=== PATIENT | female | born 1935 | race Caucasian/White ===

== ENCOUNTER 2018-07-14 11:49 | Outpatient (CLI) | payer MEDICARE, OTHER | END 2018-07-14 11:50 | disposition critical access hospital (66) | LOC: EMS 11:49 | PROVIDERS: ATTEND Surgery | DX: R73.09 Other abnormal glucose (principal) ==

== ENCOUNTER 2018-07-14 12:09 | Emergency (ER) | payer MEDICARE, OTHER ==
--- NOTE | 2018-07-14 13:10 | ED Physician Documentation ---
History of Present Illness - Stated complaint Stated Complaint: ELEVATED BLOOD SUGAR - Chief complaint Chief Complaint: Neuro - History obtained from History obtained from: Patient, Family, EMS - History of Present Illness Timing: Today (82-year-old woman who lives in a memory care facility who presents by ambulance for an episode of feeling poorly with clamminess earlier today. They checked her blood sugar and it was about 300 and she was referred here for further evaluation and treatment. Most of the history is from the daughter and son-in-law. She is been in this current memory care facility for about a year. She had a more recent diagnosis of diabetes and has been on glimepiride for less than a month. It does not look like she has an order for routine blood sugar checks. 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 : None HEENT: None Psych: Depression Musculoskeletal: None Derm: None - Present Medications Home Medications: Ambulatory Orders Medication Instructions Recorded Confirmed Blood-Glucose Meter [Glucometer] 1 each MC ONCE #1 each 07/14/18 Lancets/Blood Glucose Strips [Fora 1 each MC BID #120 combo..pkg 07/14/18 [id number] Strp-Lnct] metFORMIN [Glucophage] 500 mg PO BIDWM #60 tablet 07/14/18 - Allergies Allergies/Adverse Reactions: Allergies Allergy/AdvReac Type Severity Reaction Status Date / Time amitriptyline Allergy Unknown Verified 07/14/18 12:22 celecoxib [From Celebrex] Allergy Unknown Verified 07/14/18 12:22 ciprofloxacin [From Cipro] Allergy Unknown Verified 07/14/18 12:22 hydrocortisone Allergy Unknown Verified 07/14/18 12:22 [From Cortizone-10] metronidazole [From Flagyl] Allergy Unknown Verified 07/14/18 12:22 NSAIDS (Non-Steroidal Allergy Unknown Verified 07/14/18 12:22 Anti-Inflamma oxycodone Allergy Unknown Verified 07/14/18 12:22 Penicillins Allergy Unknown Verified 07/14/18 12:22 risedronate sodium Allergy Unknown Verified 07/14/18 12:22 Sulfa (Sulfonamide Allergy Unknown Verified 07/14/18 12:22 Antibiotics) Tetracyclines Allergy Unknown Verified 07/14/18 12:22 - Social History Does the pt smoke?: No Smoking Status: Never smoker Does the pt drink ETOH?: No Does the pt have substance abuse?: No - Immunizations Immunizations are current?: No - POLST Patient has POLST: No PD ED PE NORMAL - Vitals Vital signs reviewed: Yes - General General: Other (She is alert and oriented to person and place. She can test say that she is from [facility], but cannot verbalize which side of the state that is on. When I asked her where she lives she says "here and there." She is unable to verbalize the month, date or year.) - HEENT HEENT: PERRL, EOMI - Neck Neck: Supple, no meningeal sign, No bony TTP - Cardiac Cardiac: RRR, No murmur - Respiratory Respiratory: No respiratory distress, Clear bilaterally - Abdomen Abdomen: Soft, Non tender - Derm Derm: Normal color, Warm and dry - Extremities Extremities: No edema, No calf tenderness / cord - Neuro Neuro: intern brand 2-12 intact Eye Opening: Spontaneous Motor: Obeys Commands Verbal: Confused GCS Score: 14 - Psych Psych: Normal mood, Normal affect Results - Vitals Vitals: Vital Signs - 24 hr 07/14/18 07/14/18 12:16 13:58 Temperature 36.8 C 36.4 C L Heart Rate 65 77 Respiratory 18 24 Rate Blood Pressure 118/72 106/69 O2 Saturation 93 95 Oxygen O2 Source Room air - Labs Labs: Laboratory Tests 07/14/18 07/14/18 07/14/18 12:15 13:01 13:01 WBC 9.6 RBC 4.40 Hgb 13.3 Hct 40.7 MCV 92.4 MCH 30.3 MCHC 32.8 RDW 16.7 H Plt Count 148 MPV 10.0 Neut # (Auto) 7.1 H Lymph # (Auto) 1.9 [place] # (Auto) 0.5 Eos # (Auto) 0.0 Baso # (Auto) 0.1 Absolute Nucleated RBC 0.01 Nucleated RBC % 0.1 VBG pH 7.427 H VBG pCO2 34.1 L VBG pO2 27.1 VBG HCO3 22.0 L VBG Total CO2 23.0 L VBG O2 Saturation 51.1 L VBG Base Excess -1.7 Sodium Potassium Chloride Carbon Dioxide Anion Gap BUN Creatinine Estimated GFR (MDRD) Glucose POC Whole Bld Glucose 260 H Calcium Total Bilirubin AST ALT Alkaline Phosphatase Total Protein Albumin Globulin Albumin/Globulin Ratio Lipase Urine Color Urine Clarity Urine pH Ur Specific [place] Urine Protein Urine Glucose (UA) Urine Ketones Urine Occult Blood Urine Nitrite Urine Bilirubin Urine Urobilinogen Ur Leukocyte Esterase Urine RBC Urine WBC Ur Squamous Epith Cells Urine Bacteria Urine Casts Urine Mucus Ur Microscopic Review Urine Culture Comments Serum Ketones 07/14/18 07/14/18 13:20 13:45 WBC RBC Hgb Hct MCV MCH MCHC RDW Plt Count MPV Neut # (Auto) Lymph # (Auto) [place] # (Auto) Eos # (Auto) Baso # (Auto) Absolute Nucleated RBC Nucleated RBC % VBG pH VBG pCO2 VBG pO2 VBG HCO3 VBG Total CO2 VBG O2 Saturation VBG Base Excess Sodium 136 Potassium 3.7 Chloride 99 L Carbon Dioxide 20 L Anion Gap 17.0 H BUN 27 H Creatinine 1.5 H Estimated GFR (MDRD) 33 L Glucose 221 H POC Whole Bld Glucose Calcium 9.6 Total Bilirubin 0.7 AST 29 ALT 19 Alkaline Phosphatase 64 Total Protein 7.1 Albumin 3.7 Globulin 3.4 Albumin/Globulin Ratio 1.1 Lipase 34 Urine Color YELLOW Urine Clarity CLEAR Urine pH 5.5 Ur Specific [place] >=1.030 H Urine Protein 30 H Urine Glucose (UA) NEGATIVE Urine Ketones TRACE Urine Occult Blood NEGATIVE Urine Nitrite NEGATIVE Urine Bilirubin NEGATIVE Urine Urobilinogen 0.2 (NORMAL) Ur Leukocyte Esterase NEGATIVE Urine RBC None Seen Urine WBC 0-3 Ur Squamous Epith Cells RARE Squamous Urine Bacteria Rare Urine Casts 0-2 Hyaline Casts Urine Mucus Few Strands Ur Microscopic Review INDICATED Urine Culture Comments NOT INDICATED Serum Ketones NEGATIVE PD MEDICAL DECISION MAKING - ED course ED course: 82-year-old woman who presents after weak and dizzy episode which is now resolved. Work-up is negative except for modest hypoglycemia and prerenal azotemia which is treated with IV fluids. Departure - Departure Disposition: 01 Home, Self Care Clinical Impression: Dizziness, Weakness, Hyperglycemia Condition: Good Record reviewed to determine appropriate education?: Yes Instructions: ED Near Syncope Unkn Prescriptions: Blood-Glucose Meter [Glucometer] 1 each ONCE #1 each Lancets/Blood Glucose Strips [Fora [id number] [facility]-Lnct] 1 each MC BID #120 combo..pkg metFORMIN [Glucophage] 500 mg PO BIDWM #60 tablet Comments: As discussed I think the weak and dizzy episode earlier in the day was from dehydration for which she received IV fluids. Although her blood sugar was high I do not think this was causative but merits further treatment and followup. I am adding metformin to her diabetic regimen, 500 mg twice a day. She should have her blood sugar checked twice a day and recorded. Report to her PCP in 1 week with the blood sugar values for further evaluation and management.
[2018-07-14 13:29] LABS: BILIRUBIN,URINE NEGATIVE (NEGATIVE); GLUCOSE, URINE (UA) NEGATIVE (NEGATIVE); KETONES,URINE (UA) TRACE mg/dL (NEGATIVE); LEUKOCYTE ESTERASE, URINE NEGATIVE (NEGATIVE); NITRITE,URINE NEGATIVE (NEGATIVE); OCCULT BLOOD,URINE NEGATIVE (NEGATIVE); PH,URINE 5.5 PH (5.0-7.5); PROTEIN,URINE 30 mg/dL (NEGATIVE); UROBILINOGEN,URINE 0.2 (NORMAL) E.U./dL (NORMAL)
[2018-07-14 13:32] LABS: CLARITY,URINE CLEAR (CLEAR)
[2018-07-14 13:34] LABS: VBG BASE EXCESS -1.7 mmol/L (-2 - +2); VBG PCO2 34.1 mmHg (41-51); VBG PH 7.427 (7.31-7.41); VBG PO2 27.1 mmHg (25-47)
[2018-07-14 13:35] LABS: BASOPHILS # (AUTO) 0.1 10^3/uL (0.0-0.1); BASOPHILS % (AUTO) 0.6 %; EOSINOPHILS % (AUTO) 0.1 %; HGB - HEMOGLOBIN 13.3 g/dL (12.0-16.0); LYMPHOCYTES # (AUTO) 1.9 10^3/uL (1.5-3.5); LYMPHOCYTES % (AUTO) 20.1 %; MEAN CORPUSCULAR HEMOGLOBIN 30.3 pg (27.0-31.0); MEAN CORPUSCULAR HGB CONC 32.8 g/dL (32.0-36.0); MEAN CORPUSCULAR VOLUME 92.4 fL (81.0-99.0); MONOCYTES # (AUTO) 0.5 10^3/uL (0.0-1.0); MONOCYTES % (AUTO) 5.4 %; NEUTROPHILS # (AUTO) 7.1 10^3/uL (1.5-6.6); NEUTROPHILS % (AUTO) 73.8 %; PLT - PLATELET COUNT 148 10^3/uL (130-450); RED CELL DISTRIBUTION WIDTH 16.7 % (12.0-15.0); WHITE BLOOD COUNT 9.6 x10^3/uL (4.8-10.8)
[2018-07-14 13:40] LABS: BACTERIA,URINE Rare /HPF (None Seen); CASTS, URINE 0-2 Hyaline Casts /LPF; MUCUS,URINE Few Strands; RBC,URINE None Seen /HPF (0-5); SQUAMOUS EPITHELIAL CELL,UR RARE Squamous (<= Few)
[2018-07-14 13:59] LABS: KETONES, SERUM (ACETEST) NEGATIVE (NEGATIVE)
[2018-07-14 14:07] LABS: ALBUMIN 3.7 g/dL (3.2-5.5); ALBUMIN/GLOBULIN RATIO 1.1 (1.0-2.2); ALKALINE PHOSPHATASE 64 IU/L (42-121); ALT ALANINE AMINOTRANSFERASE 19 IU/L (10-60); AST ASPARTATE AMINOTRANSFERASE 29 IU/L (10-42); BILIRUBIN,TOTAL 0.7 mg/dL (0.2-1.0); BUN - BLOOD UREA NITROGEN 27 mg/dL (6-20); CALCIUM 9.6 mg/dL (8.5-10.3); CARBON DIOXIDE - CO2 20 mmol/L (21-32); CHLORIDE 99 mmol/L (101-111); CREATININE 1.5 mg/dL (0.4-1.0); GFR - MDRD 33 (>89); GLUCOSE 221 mg/dL (70-100); LIPASE 34 U/L (22-51); SODIUM 136 mmol/L (135-145); TOTAL PROTEIN 7.1 g/dL (6.7-8.2)
[2018-07-14] MEDS ORDERED: SODIUM CHLORIDE 0.9% 1,000 ML IV ONE (14:10)
[2018-07-14 15:35] VITALS: BP 106/84
== END 2018-07-14 15:35 | disposition home or self-care (01) ==
LOC: ED 12:09
DX: E11.65 Type 2 diabetes mellitus with hyperglycemia (principal); R79.89 Other specified abnormal findings of blood chemistry; R42 Dizziness and giddiness; R53.1 Weakness; I10 Essential (primary) hypertension; F03.90 Unspecified dementia, unspecified severity, without behavioral disturbance, psychotic disturbance, mood disturbance, and anxiety; F32.9 Major depressive disorder, single episode, unspecified; E78.00 Pure hypercholesterolemia, unspecified; Z79.84 Long term (current) use of oral hypoglycemic drugs
CPT/HCPCS: 80053; 81001; 81003; 82009; 82803; 83690; 85025; 87086; 99284

== ENCOUNTER 2018-07-14 18:28 | Outpatient (CLI) | payer MEDICARE, OTHER | END 2018-07-14 18:29 | disposition critical access hospital (66) | LOC: EMS 18:28 | PROVIDERS: ATTEND Surgery | DX: R55 Syncope and collapse (principal); R53.1 Weakness; R73.09 Other abnormal glucose | CPT/HCPCS: A0425; A0427; A0429 ==

== ENCOUNTER 2018-07-14 18:45 | Inpatient (IN) | payer MEDICARE, OTHER ==
--- NOTE | 2018-07-14 19:40 | ED Physician Documentation ---
PD HPI ALTERED MENTAL STATUS - Stated complaint Stated Complaint: SYNCOPAL - Chief complaint Chief Complaint: Neuro - History obtained from History obtained from: Patient, Family, EMS - History of Present Illness Timing - onset: Today (I saw her earlier in the day for weakness episode. Her blood sugar was up but not terribly. She was given some IV fluid for prerenal azotemia and discharged. They went to a restaurant where she had several dizzy episodes and paramedics were summoned and she did have actually a syncopal episode there as well. She was complaining of stomach upset nausea but never vomited. 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 HEENT: None Psych: Depression Musculoskeletal: None Derm: None - Past Surgical History Past Surgical History: No - Present Medications Home Medications: Ambulatory Orders Medication Instructions Recorded Confirmed Blood-Glucose Meter [Glucometer] 1 each MC ONCE #1 each 07/14/18 Lancets/Blood Glucose Strips [Fora 1 each MC BID #120 combo..pkg 07/14/18 [id number] Strp-Lnct] metFORMIN [Glucophage] 500 mg PO BIDWM #60 tablet 07/14/18 - Allergies Allergies/Adverse Reactions: Allergies Allergy/AdvReac Type Severity Reaction Status Date / Time amitriptyline Allergy Unknown Verified 07/14/18 18:56 celecoxib [From Celebrex] Allergy Unknown Verified 07/14/18 18:56 ciprofloxacin [From Cipro] Allergy Unknown Verified 07/14/18 18:56 hydrocortisone Allergy Unknown Verified 07/14/18 18:56 [From Cortizone-10] metronidazole [From Flagyl] Allergy Unknown Verified 07/14/18 18:56 NSAIDS (Non-Steroidal Allergy Unknown Verified 07/14/18 18:56 Anti-Inflamma oxycodone Allergy Unknown Verified 07/14/18 18:56 Penicillins Allergy Unknown Verified 07/14/18 18:56 risedronate sodium Allergy Unknown Verified 07/14/18 18:56 Sulfa (Sulfonamide Allergy Unknown Verified 07/14/18 18:56 Antibiotics) Tetracyclines Allergy Unknown Verified 07/14/18 18:56 - Social History Does the pt smoke?: No Smoking Status: Never smoker Does the pt drink ETOH?: No Does the pt have substance abuse?: No - Immunizations Immunizations are current?: No - POLST Patient has POLST: No PD ED PE NORMAL - Vitals Vital signs reviewed: Yes - General General: Other (She is alert and oriented to person, poor historian for recent events) - HEENT HEENT: PERRL, EOMI - Neck Neck: Supple, no meningeal sign, No bony TTP - Cardiac Cardiac: RRR, No murmur - Respiratory Respiratory: No respiratory distress, Clear bilaterally - Abdomen Abdomen: Normal bowel sounds, Soft, No organomegaly, Other (Tender in the left lower quadrant without surgical signs) - Back Back: No CVA TTP, No spinal TTP - Derm Derm: Normal color, Warm and dry - Extremities Extremities: No edema, No calf tenderness / cord - Neuro Neuro: Normal speech Eye Opening: Spontaneous Motor: Obeys Commands Verbal: Confused GCS Score: 14 Results - Vitals Vitals: Vital Signs - 24 hr 07/14/18 07/14/18 07/14/18 18:47 19:51 21:03 Temperature 36.0 C L Heart Rate 74 62 64 Respiratory 16 14 21 Rate Blood Pressure 89/57 L 100/65 100/70 O2 Saturation 93 96 96 Oxygen O2 Source Nasal cannula Oxygen Flow Rate 2 - EKG (time done) 1855 Rate: Rate (enter#) (70) Rhythm: NSR [place]: Normal Intervals: Prolonged QT QRS: LVH Ischemia: Normal ST segments - Labs Labs: Laboratory Tests 07/14/18 07/14/18 07/14/18 19:32 19:32 19:32 WBC 9.0 RBC 4.07 L Hgb 12.3 Hct 37.0 MCV 90.8 MCH 30.3 MCHC 33.3 RDW 16.7 H Plt Count 141 MPV 9.8 Neut # (Auto) 6.6 Lymph # (Auto) 1.7 [place] # (Auto) 0.6 Eos # (Auto) 0.0 Baso # (Auto) 0.1 Absolute Nucleated RBC 0.00 Nucleated RBC % 0.0 Sodium 137 Potassium 3.6 Chloride 104 Carbon Dioxide 19 L Anion Gap 14.0 H BUN 30 H Creatinine 1.7 H Estimated GFR (MDRD) 29 L Glucose 235 H Calcium 9.3 Total Bilirubin 0.4 AST 43 H ALT 36 Alkaline Phosphatase 69 Troponin I 0.06 Total Protein 7.4 Albumin 3.9 Globulin 3.5 Albumin/Globulin Ratio 1.1 Lipase 29 PD MEDICAL DECISION MAKING - ED course ED course: This is an 82-year-old woman who "bounces back" with syncope after a week episode earlier in the day. She was found to be dehydrated earlier in the day and despite receiving IV meds her BUN and her creatinine are higher in a prerenal pattern than they were earlier in the day. She received further IV rehydration. She had some lower abdominal tenderness and a CT was done without acute finding. Spoke with Dr. Regalado for observation at 9:16 PM. Departure - Departure Disposition: ED Place in Observation Clinical Impression: Weakness, Dehydration Dementia Qualifiers: Dementia type: Alzheimer's disease Alzheimer's disease onset: unspecified onset Dementia behavioral disturbance: without behavioral disturbance Qualified Code(s): G30.9 - Alzheimer's disease, unspecified; F02.80 - Dementia in other diseases classified elsewhere without behavioral disturbance Syncope Qualifiers: Syncope type: unspecified Qualified Code(s): R55 - Syncope and collapse Condition: Serious
[2018-07-14 19:42] LABS: BASOPHILS # (AUTO) 0.1 10^3/uL (0.0-0.1); BASOPHILS % (AUTO) 0.9 %; EOSINOPHILS % (AUTO) 0.1 %; HGB - HEMOGLOBIN 12.3 g/dL (12.0-16.0); LYMPHOCYTES # (AUTO) 1.7 10^3/uL (1.5-3.5); LYMPHOCYTES % (AUTO) 19.2 %; MEAN CORPUSCULAR HEMOGLOBIN 30.3 pg (27.0-31.0); MEAN CORPUSCULAR HGB CONC 33.3 g/dL (32.0-36.0); MEAN CORPUSCULAR VOLUME 90.8 fL (81.0-99.0); MEAN PLATELET VOLUME 9.8 fL (7.9-10.8); MONOCYTES # (AUTO) 0.6 10^3/uL (0.0-1.0); MONOCYTES % (AUTO) 6.3 %; NEUTROPHILS # (AUTO) 6.6 10^3/uL (1.5-6.6); NEUTROPHILS % (AUTO) 73.5 %; PLT - PLATELET COUNT 141 10^3/uL (130-450); RED BLOOD COUNT 4.07 10^6/uL (4.20-5.40); RED CELL DISTRIBUTION WIDTH 16.7 % (12.0-15.0)
[2018-07-14 20:04] LABS: ALBUMIN 3.9 g/dL (3.2-5.5); ALBUMIN/GLOBULIN RATIO 1.1 (1.0-2.2); CALCIUM 9.3 mg/dL (8.5-10.3); CREATININE 1.7 mg/dL (0.4-1.0); TOTAL PROTEIN 7.4 g/dL (6.7-8.2)
[2018-07-14] MEDS ORDERED: SODIUM CHLORIDE 0.9% 1,000 ML IV ONE ×2 (20:23)
[2018-07-14 20:46] LABS: BILIRUBIN,TOTAL 0.4 mg/dL (0.2-1.0)
--- NOTE | 2018-07-14 21:04 | CT Report ---
Reason: LLQ pain Procedure Date: 07/14/2018 Accession Number: [id number] / [id number] Procedure: CT - Abdomen/Pelvis WO CPT Code: FULL RESULT: EXAM: CT ABDOMEN AND PELVIS (CT KUB) EXAM DATE: 07/14/2018 08:19 PM. CLINICAL HISTORY: LLQ pain. COMPARISONS: None. TECHNIQUE: Routine axial helical CT imaging was performed through the abdomen and pelvis without IV contrast. Reconstructions: Coronal and sagittal. In accordance with CT protocol optimization, one or more of the following dose reduction techniques were utilized for this exam: automated exposure control, adjustment of mA and/or KV based on patient size, or use of iterative reconstructive technique. FINDINGS: Respiratory motion mildly degrades diagnostic quality of exam. Lung Bases: Trace bibasilar dependent atelectasis. Normal heart size. No pericardial effusion. Right Kidney/Ureter: No stones, hydronephrosis, or hydroureter. Moderate nonspecific perinephric fat stranding. Left Kidney/Ureter: No stones, hydronephrosis, or hydroureter. No perinephric fat stranding. Other Solid Organs: Noncontrast appearance of the liver, adrenal glands, and pancreas are within normal limits. The spleen contains coarse calcifications, possibly related to prior trauma. Gallbladder/Bile Ducts: Cholelithiasis Peritoneal Cavity: Changes of prior gastric surgery with extensive surgical clips. Small and large bowel are normal in caliber without evidence of obstruction or definite inflammation. Moderate sigmoid diverticulosis without diverticulitis. No ascites or pneumoperitoneum. No loculated fluid collection to suggest abscess. Normal appendix. Pelvic Organs: No bladder stones or wall thickening. The uterus is deviated to the left. Vasculature: Moderate aortobiiliac atherosclerosis without aneurysm Other: Severe degenerative disk disease L5-S1. IMPRESSION: 1. No acute abnormality on noncontrast abdomen and pelvis CT. 2. Postsurgical changes about the stomach. 3. Moderate sigmoid diverticulosis without diverticulitis. RADIA
[2018-07-14] MEDS ORDERED: SODIUM CHLORIDE FLUSH 0.9% 10 ML SYRINGE IVP PRN (21:16)
--- NOTE | 2018-07-14 21:58 | HISTORY & PHYSICAL EXAMINATION ---
Chief Complaint - Chief Complaint Chief Complaint: syncope History of Present Illness - Admitted From Admitted From:: [facility] ED - History Obtained From Records Reviewed: yes History obtained from: family Exam Limitations: dementia - History of Present Illness HPI Comment/Other: Patient seen on 07/14/18 at 2245pm Patient is an 82 y/o female who presented to the ED with syncope. She resides at [facility] due to Dementia. She had presented to the ED around noon today because she suddenly became weak, sweaty and unsteady at [facility]. She was found to have a creatinine of 1.5 and a blood glucose of 265. She was given 1L of normal saline and discharged. The family went out to eat at [employer] in celebration of Mother's Day when she became weak again, she was having shallow breathing and her knees buckled. EMS was called and on the way to the ED she had a syncopal episode. Her blood pressure in the ED was 89/57 with a repeat creatinine of 1.7. She was given another bolus of 1L normal saline and saline continued at 200ml/hr. Family reports that she has never had a syncopal episode before. The patient is not able to give a reliable history due to dementia. At the time of my exam, she was fully wake and appeared calm. She could not tell where or why she was in the hospital. She is being admitted for further treatment and work up. 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 : reports: None HEENT: reports: None Psych: reports: Depression Musculoskeletal: reports: None Derm: reports: None MRSA Hx?: No - Family & Social History Family History: Father: [place] (father: at 51 from [place]) Family History Comment/Other: Extensive family history of dementia Living arrangement: Assisted living ([facility]) Social History Notes: She does not smoke, consume alcohol or use illicit drugs - POLST Patient has POLST: No POLST Status: Full Code Meds/Allgy - Home Medications Home Medications: Ambulatory Orders Medication Instructions Recorded Confirmed Acetaminophen [Tylenol] 650 mg PO Q6HR PRN 07/14/18 07/14/18 Atenolol 50 mg PO DAILY 07/14/18 07/14/18 Atorvastatin [Lipitor] 10 mg PO DAILY 07/14/18 07/14/18 Bisacodyl Supp [Dulcolax Supp] 10 mg DC ONCE 07/14/18 07/14/18 Blood-Glucose Meter [Glucometer] 1 each ONCE #1 each 07/14/18 Cholecalciferol (Vitamin D3) 07/14/18 [Vitamin D3] Cyanocobalamin (Vitamin B-12) 2,500 mcg PO DAILY 07/14/18 07/14/18 [Vitamin B-12] Escitalopram Oxalate 20 mg PO DAILY 07/14/18 07/14/18 Glimepiride 1 mg PO DAILY 07/14/18 07/14/18 Lancets/Blood Glucose Strips [Fora 1 each BID #120 combo..pkg 07/14/18 [id number] Strp-Lnct] Loperamide [Imodium] PRN 07/14/18 Mag Hydrox/Al Hydrox/Simeth PRN 07/14/18 [Antacid Suspension] Magnesium Hydroxide [Milk of PRN 07/14/18 Magnesia] Memantine HCl [Memantine HCl ER] 28 mg PO DAILY 07/14/18 07/14/18 Multivitamin [Multiple Vitamins] 1 each PO DAILY 07/14/18 07/14/18 Omeprazole 40 mg PO DAILY 07/14/18 07/14/18 Rivastigmine Tartrate 6 mg PO BID 07/14/18 07/14/18 [Rivastigmine] hydroCHLOROthiazide 25 mg PO DAILY 07/14/18 07/14/18 [Hydrochlorothiazide] metFORMIN [Glucophage] 500 mg PO BIDWM #60 tablet 07/14/18 - Allergies Allergies/Adverse Reactions: Allergies Allergy/AdvReac Type Severity Reaction Status Date / Time amitriptyline Allergy Unknown Verified 07/14/18 18:56 celecoxib [From Celebrex] Allergy Unknown Verified 07/14/18 18:56 ciprofloxacin [From Cipro] Allergy Unknown Verified 07/14/18 18:56 hydrocortisone Allergy Unknown Verified 07/14/18 18:56 [From Cortizone-10] metronidazole [From Flagyl] Allergy Unknown Verified 07/14/18 18:56 NSAIDS (Non-Steroidal Allergy Unknown Verified 07/14/18 18:56 Anti-Inflamma oxycodone Allergy Unknown Verified 07/14/18 18:56 Penicillins Allergy Unknown Verified 07/14/18 18:56 risedronate sodium Allergy Unknown Verified 07/14/18 18:56 Sulfa (Sulfonamide Allergy Unknown Verified 07/14/18 18:56 Antibiotics) Tetracyclines Allergy Unknown Verified 07/14/18 18:56 Review of Systems - Constitutional Constitutional: reports: Weakness, Diaphoresis. denies: Fatigue, Fever, Chills, Poor appetite - Eyes Eyes: denies: Blurred vision, Vision loss, Dipolpia - Ears, Nose & Throat Ears, Nose & Throat: denies: Tinnitus, Vertigo, Nasal pain, Nosebleeds, Sore th roat - Cardiovascular Cariovascular: reports: Lightheadedness, Syncope. denies: Irregular heart rate, Palpitations, Chest pain, Exertional dyspnea - Respiratory Respiratory: denies: Cough, Sputum production, Wheezing, SOB at rest, SOB with exertion - Gastrointestinal Gastrointestinal: reports: Abdominal pain, Reflux/heartburn. denies: Abdominal distention, Constipation, Diarrhea, Change in bowel habits, Rectal bleeding, Black stools, Bloody stools, Nausea, Vomiting, Coffee grounds emesis - Genitourinary Genitourinary: denies: Dysuria, Frequency, Urgency, Hematuria - Musculoskeletal Musculoskeletal: denies: Muscle pain, Back pain, Muscle aches - Integumentary Integumentary: denies: Rash, Pruritis, Lesions - Neurological Neurological: reports: Dizziness, Memory problems. denies: General weakness, Focal weakness, Headache, Numbness, Seizures, Incoordination - Psychiatric Psychiatric: reports: Depression. denies: Anxiety - Endocrine Endocrine: denies: Polyuria, Polydypsia - Hematologic/Lymphatic Hematologic/Lymphatic: denies: Anemia, Bruising, Petechiae Prior Level of Functionality: Resides at [facility] Has baseline dementia. Ambulates unaided Exam - Vital Signs Reviewed Vital Signs: Yes Vital Signs: Vital Signs x48h Temp Pulse Resp BP Pulse Ox 07/14/18 21:03 64 21 100/70 96 07/14/18 19:51 62 14 100/65 96 07/14/18 18:47 36.0 C L 74 16 89/57 L 93 - Physical Exam General Appearance: positive: No acute distress Eyes Bilateral: positive: Normal inspection, PERRL, EOMI ENT: positive: ENT inspection nml Neck: positive: Nml inspection, No JVD, Trachea midline Respiratory: positive: Chest non-tender, No respiratory distress, Breath sounds nml. negative: Wheezes, Rales, Rhonchi Cardiovascular: positive: Regular rate & rhythm, No murmur Abdomen: positive: Non-tender, Nml bowel sounds, No distention. negative: Guarding, Rebound Back: positive: Nml inspection Skin: positive: Color nml, No rash, Warm, Dry Extremities: positive: Non-tender, Pedal edema (trace) Neurologic/Psychiatric: positive: Motor nml, Sensation nml, Mood/affect nml, Other (Dementia). negative: Oriented x3 Conclusion/Plan - Problem List (1) Syncope Conclusion/Plan: IV hydration with normal saline 2D echo in the am. Check orthostatic vitals Hold HCTZ, atenolol and loperamide Qualifiers: Syncope type: unspecified Qualified Code(s): R55 - Syncope and collapse (2) Acute kidney injury Conclusion/Plan: Likely pre-renal due to dehydration patient being hydrated with normal saline Hold HCTZ and atenolol Anticipating improvement. Will recheck BMP in the am (3) Diabetes mellitus type II, uncontrolled Conclusion/Plan: Will hold metformin and glimerpiride SSI Moderate ordered Checking HgA1c. Accu checks Qualifiers: Glycemic state: with hyperglycemia Qualified Code(s): E11.65 - Type 2 diabetes mellitus with hyperglycemia (4) Dementia Conclusion/Plan: On memantine and rivastigmine Qualifiers: Dementia type: Alzheimer's disease Alzheimer's disease onset: unspecified onset Dementia behavioral disturbance: without behavioral disturbance Qualified Code(s): G30.9 - Alzheimer's disease, unspecified; F02.80 - Dementia in other diseases classified elsewhere without behavioral disturbance (5) Hyperlipidemia Conclusion/Plan: On atorvastatin (6) Depression Conclusion/Plan: On escitalopram (7) Hypertension Conclusion/Plan: HCTZ and atenolol currently on hold due to syncope (8) GERD (gastroesophageal reflux disease) Conclusion/Plan: Protonix ordered - Lab Results Fish Bones: 07/15/18 05:07 07/15/18 05:07 - Diagnostic Imaging Results Diagnostic Imaging Results: positive: Final report reviewed - EKG Results EKG Interpreted Independently: Yes EKG Comparison: No prior EKG Core Measures - Anticipated LOS I expect patient to be DC'd or transferred within 96 hours.: Yes - DVT/VTE - Prophylaxis VTE/DVT Device ordered at admit?: Yes VTE/DVT Prophylaxis med ordered at admit?: Yes
[2018-07-14 22:19] LABS: HB2 TOTAL 13.3 g/dL; HEMOGLOBIN A1C 0.63 g/dL; HEMOGLOBIN A1C % 6.5 % (4.6-6.2)
[2018-07-14] MEDS: HEPARIN 5,000 UNIT/ML VIAL SUBQ SCH (22:27)
[2018-07-14] MEDS: SODIUM CHLORIDE 0.9% 1,000 ML IV SCH (23:04)
[2018-07-15] MEDS: SODIUM CHLORIDE FLUSH 0.9% 10 ML SYRINGE IVP SCH ×3 (00:15→17:22)
[2018-07-15] MEDS: SODIUM CHLORIDE 0.9% 1,000 ML IV SCH ×4 (01:43→20:55)
[2018-07-15 05:16] LABS: BASOPHILS # (AUTO) 0.1 10^3/uL (0.0-0.1); BASOPHILS % (AUTO) 0.6 %; EOSINOPHILS % (AUTO) 0.2 %; HGB - HEMOGLOBIN 11.7 g/dL (12.0-16.0); LYMPHOCYTES # (AUTO) 1.9 10^3/uL (1.5-3.5); MEAN CORPUSCULAR HEMOGLOBIN 30.8 pg (27.0-31.0); MEAN CORPUSCULAR HGB CONC 33.7 g/dL (32.0-36.0); MEAN CORPUSCULAR VOLUME 91.2 fL (81.0-99.0); MEAN PLATELET VOLUME 9.6 fL (7.9-10.8); MONOCYTES # (AUTO) 0.6 10^3/uL (0.0-1.0); MONOCYTES % (AUTO) 7.1 %; NEUTROPHILS # (AUTO) 6.1 10^3/uL (1.5-6.6); NEUTROPHILS % (AUTO) 70.1 %; PLT - PLATELET COUNT 130 10^3/uL (130-450); RED BLOOD COUNT 3.81 10^6/uL (4.20-5.40); RED CELL DISTRIBUTION WIDTH 16.3 % (12.0-15.0); WHITE BLOOD COUNT 8.7 x10^3/uL (4.8-10.8)
[2018-07-15 05:24] LABS: CALCIUM 8.5 mg/dL (8.5-10.3); CREATININE 1.5 mg/dL (0.4-1.0)
[2018-07-15] MEDS: HEPARIN 5,000 UNIT/ML VIAL SUBQ SCH ×2 (08:00→20:53)
[2018-07-15] MEDS: INSULIN ASPART 300 UNIT/3 ML PEN SUBQ SCH ×4 (08:02→20:59)
[2018-07-15] MEDS: POLYETHYLENE GLYCOL 3350 17 GM PACKET PO SCH (08:06)
[2018-07-15] MEDS: PANTOPRAZOLE 40 MG TABLET PO SCH (09:01)
--- NOTE | 2018-07-15 16:32 | XRAY Report ---
Reason: SOB, desaturating Procedure Date: 07/15/2018 Accession Number: [id number] / [id number] Procedure: XR - Chest 1 View X-Ray CPT Code: 97409 FULL RESULT: EXAM: CHEST RADIOGRAPHY EXAM DATE: 07/15/2018 04:22 PM. CLINICAL HISTORY: Shortness of breath. Desaturations. COMPARISON: None. TECHNIQUE: 1 view. FINDINGS: Lungs/Pleura: No focal consolidation or evidence of edema. No pleural effusion or pneumothorax. Mediastinum: Heart size is normal. The aorta is mildly tortuous. Other: Surgical clips in the left breast. The bones are unremarkable. IMPRESSION: No acute cardiopulmonary abnormality. RADIA
--- NOTE | 2018-07-15 16:55 | PROVIDER PROGRESS NOTE ---
Assessment/Plan - Problem List (1) Acute kidney injury Assessment/Plan: Her creatinine is no better, at 1.5, after 3L of saline since admission. Will admit the patient to full inpatient status, not obvious status. I updated the family in the room, at her bedside, about the plan (several daughters, one son-in-law, several children) (2) Dehydration Assessment/Plan: As in #1. I had a long discussion with 2 daughters at the bedside regarding this patient's fluid intake at the [facility] and thatthe patient is still dehydrated and needs longer hospitalization and management. Also, her HCTZ has been stopped and will not be restarted; she will require different blood pressure medications at discharge, once her BP meds are resumed. Follow BMP daily. (3) Syncope Qualifiers: Syncope type: unspecified Qualified Code(s): R55 - Syncope and collapse Assessment/Plan: #2 appears to be the etiology of her syncope. After she has further IV hydration, and when the creatinine has normalized, I will order postural vital sign checks, to determine if the patient has a p ropensity for orthostasis. For this reason the HCTZ will not be her BP med at discharge. This was discussed with the daughters and other family in the room. (4) Dementia Qualifiers: Dementia type: Alzheimer's disease Alzheimer's disease onset: unspecified onset Dementia behavioral disturbance: without behavioral disturbance Qualified Code(s): G30.9 - Alzheimer's disease, unspecified; F02.80 - Dementia in other diseases classified elsewhere without behavioral disturbance Assessment/Plan: She is on her dementia medications while here (5) Speech abnormality Assessment/Plan: Her neurologic exam is grossly normal today except for her poor memory. We will obtain a CT of the head to evaluate for stroke, given last night's report of "speaking gibberish". I suspect this was from however and not a stroke. Will order Seroquel in the evening, if those symptoms should recurr. (6) Cor pulmonale Assessment/Plan: The Echo, which was done today, shows normal LV function but a dilated right ventricle with poor RV contractility. I reviewed with the family what her potential causes for cor pulmonale could be: She has never had asthma, COPD or inhalation exposures (such as to asbestos). The patient does have a history of sleep apnea which was diagnosed 5 to 10 years ago, and she was supposed to be on a CPAP device, but did not tolerate it and therefore has not used it for that entire 5-10 year time. If possible I will order overnight oximetry here, to confirm desaturations. Then either supplemental oxygen by nasal cannula may be ordered, or she will need a CPAP trial. (7) Diabetes mellitus type II, uncontrolled Qualifiers: Glycemic state: with hyperglycemia Qualified Code(s): E11.65 - Type 2 diabetes mellitus with hyperglycemia Assessment/Plan: The daughter reports that Glimepiride is a new medication, just started 3 weeks ago. She wonders if this syncopal event was a side effect related to Glimepiride. The serum glucose results were not low at either the first ER visit or the second ER visit yesterday, therefore it is unlikely that Glimiperide was the cause of syncope. She is on a carb controlled diet, insulin coverage with sliding scale glucose checks (8) Sleep apnea Assessment/Plan: Non-compliant with CPAP, possibly due to dementia. See plan in #6 above. - Current Meds Current Meds: Current Medications Generic Name Dose Route Start Last Admin Trade Name Freq PRN Reason Stop Dose Admin Heparin Sodium (Porcine) 5,000 unit 07/14/18 22:00 07/15/18 08:00 SUBQ 5,000 unit BID SCOTT Administration Sodium Chloride 1,000 mls @ 150 mls/hr 07/14/18 22:00 07/15/18 14:34 Normal Saline 0.9% IV 150 mls/hr .Q6H40M SCOTT Administration Insulin Aspart 1 - 9 unit 07/15/18 08:00 07/15/18 12:03 Novolog SUBQ 1 unit 0800,1200,1700,2100 SCOTT Administration Protocol Pantoprazole Sodium 40 mg 07/15/18 09:00 07/15/18 09:01 Protonix PO Not Given DAILY SCOTT Polyethylene Glycol 17 gm 07/15/18 09:00 07/15/18 08:06 Miralax PO Not Given DAILY SCOTT Sodium Chloride 10 ml 07/15/18 01:00 07/15/18 08:08 Normal Saline Flush 0.9% IVP Not Given 0100,0900,1700 SCOTT - Lab Result Fish Bone Diagrams: 07/15/18 05:07 07/15/18 05:07 - Additional Planning My Orders: My Active Orders 07/15/18 15:58 HEAD WO [CT] Routine Subjective - Subjective Patient Reports: Feeling Better, No Complaints, Other (One daughter reports that the patient was speaking "gibberish all night" which the daughter noted by sleeping in the room.) Objective Vital Signs: Vital Signs - 24 hr 07/14/18 07/14/18 07/14/18 18:47 19:51 21:03 Temperature 36.0 C L Heart Rate 74 62 64 Heart Rate [ Brachial] Heart Rate [ Radial] Respiratory 16 14 21 Rate Blood Pressure 89/57 L 100/65 100/70 Blood Pressure [Right Brachial artery] O2 Saturation 93 96 96 07/14/18 07/15/18 07/15/18 22:28 01:00 05:00 Temperature 36.2 C L 36.4 C L Heart Rate Heart Rate [ 64 Brachial] Heart Rate [ 65 65 Radial] Respiratory 16 16 20 Rate Blood Pressure Blood Pressure 102/57 L 105/62 [Right Brachial artery] O2 Saturation 90 L 94 94 07/15/18 07/15/18 07/15/18 08:11 13:00 16:23 Temperature 36.6 C 36.7 C 36.7 C Heart Rate 64 Heart Rate [ 63 64 Brachial] Heart Rate [ 69 Radial] Respiratory 18 18 18 Rate Blood Pressure Blood Pressure 111/69 111/65 [Right Brachial artery] O2 Saturation 95 96 96 Oxygen O2 Source Nasal cannula Oxygen Flow Rate 2 I&O (Last 24 Hrs): Intake and Output Totals x24h 07/13/18 07/14/18 07/15/18 23:59 23:59 23:59 Intake Total 1022.200 5579.333 Output Total 120 Balance 8304.041 4376.333 General: Alert HEENT: EOMI, Mucous membr. moist/pink Neck: Supple, No JVD Neuro: Alert, Disoriented Cardiovascular: Regular rate, No murmurs Respiratory: No respiratory distress, Breath sounds nml Abdomen: Soft, Other (Obese with pannus) Extremities: No edema, Other (Mild skin tenting over neck and shoulders) - Results Results: Laboratory Results WBC 8.7 x10^3/uL (4.8-10.8) 07/15/18 05:07 RBC 3.81 10^6/uL (4.20-5.40) L 07/15/18 05:07 Hgb 11.7 g/dL (12.0-16.0) L 07/15/18 05:07 Hct 34.8 % (37.0-47.0) L 07/15/18 05:07 MCV 91.2 fL (81.0-99.0) 07/15/18 05:07 MCH 30.8 pg (27.0-31.0) 07/15/18 05:07 MCHC 33.7 g/dL (32.0-36.0) 07/15/18 05:07 RDW 16.3 % (12.0-15.0) H 07/15/18 05:07 Plt Count 130 10^3/uL (130-450) 07/15/18 05:07 MPV 9.6 fL (7.9-10.8) 07/15/18 05:07 Neut # (Auto) 6.1 10^3/uL (1.5-6.6) 07/15/18 05:07 Lymph # (Auto) 1.9 10^3/uL (1.5-3.5) 07/15/18 05:07 [place] # (Auto) 0.6 10^3/uL (0.0-1.0) 07/15/18 05:07 Eos # (Auto) 0.0 10^3/uL (0.0-0.7) 07/15/18 05:07 Baso # (Auto) 0.1 10^3/uL (0.0-0.1) 07/15/18 05:07 Absolute Nucleated RBC 0.01 x10^3/uL 07/15/18 05:07 Nucleated RBC % 0.1 /100WBC 07/15/18 05:07 Sodium 138 mmol/L (135-145) 07/15/18 05:07 Potassium 3.6 mmol/L (3.5-5.0) 07/15/18 05:07 Chloride 104 mmol/L (101-111) 07/15/18 05:07 Carbon Dioxide 17 mmol/L (21-32) L 07/15/18 05:07 Anion Gap 17.0 (6-13) H 07/15/18 05:07 BUN 32 mg/dL (6-20) H 07/15/18 05:07 Creatinine 1.5 mg/dL (0.4-1.0) H 07/15/18 05:07 Estimated GFR (MDRD) 33 (>89) L 07/15/18 05:07 Glucose 212 mg/dL (70-100) H 07/15/18 05:07 POC Whole Bld Glucose 158 mg/dL (70 - 100) H 07/15/18 11:59 Glycated Hemoglobin 6.5 % (4.6-6.2) H 07/14/18 19:32 Estim Average Glucose 140 (70-100) H 07/14/18 19:32 Calcium 8.5 mg/dL (8.5-10.3) 07/15/18 05:07 Total Bilirubin 0.4 mg/dL (0.2-1.0) 07/14/18 19:32 AST 43 IU/L (10-42) H 07/14/18 19:32 ALT 36 IU/L (10-60) 07/14/18 19:32 Alkaline Phosphatase 69 IU/L (42-121) 07/14/18 19:32 Troponin I 0.06 ng/mL (<0.49) 07/14/18 19:32 B-Natriuretic Peptide 571 pg/mL (5-100) H 07/14/18 19:32 Total Protein 7.4 g/dL (6.7-8.2) 07/14/18 19:32 Albumin 3.9 g/dL (3.2-5.5) 07/14/18 19:32 Globulin 3.5 g/dL (2.1-4.2) 07/14/18 19:32 Albumin/Globulin Ratio 1.1 (1.0-2.2) 07/14/18 19:32 Lipase 29 U/L (22-51) 07/14/18 19:32
--- NOTE | 2018-07-15 19:03 | ADVANCE CARE PLANNING NOTE ---
Advance Care Planning - Date/Time Date: 07/15/18 Time: 14:30 - Purpose of encounter Text: To get more detailed history regarding this patient's dementia, reason for cor pulmonale found on echo, and reason for syncope and marked dehydration with RUSTAM. To establish her CODE BLUE wishes. To determine who is the POA and medical DPOA. - Parties in attendance Parties in attendance: Patient was in her bed. There were approximately 8 people in the room: Several daughters, a son-in-law, several grandchildren. - Decisional capacity Decisional capacity of: Patient answers appropriately to current questions but has no memory of the past. One daughter reports that the patient cannot even remember this daughter's name. The patient therefore has no capacity to make informed dec ision. The older sister is the DPOA for legal matters but the oldest and second daughter are medical DPOA's, as per the second daughter conversation with me. - Subjective/Patient's story Subjective/Patient's story: Patient was healthy, active and then started to get dementia. Her second left her because he could not "handle the dementia". Patient has been in a memory facility for over 5 years. The family visits her often. They think she has a good quality of life. She intermittently forgets who her children are. - Objective/Medical story Objective/Medical Story: Patient was admitted with marked dehydration producing RUSTAM. After being taken to a Mother's Day meal, she had syncope at the restaurant and had signs of persistent severe volume depletion with RUSTAM. Her symptoms have improved with 1 night of IV hydration but RUSTAM persists. She will need continued IV hydration. The family is interested in her well-being and were very inquisitive into why it is taking so long for her to rehydrate.They also reported her having a diagnosis of untreated sleep apnea for 5 to 10 years. When the patient was in our emergency room, the daughters apparently had a discussion with her then, regarding her desires for resuscitation. In the ER and apparently previously, the patient had voiced strong wishes to be a full code. The daughters do not wish to amend this choice for her. - Goals of Care Goals of care determinations: According to the discussion that took place in the emergency room yesterday, the patient and daughter did discuss what her CODE BLUE wishes are, patient apparently wants everything done and to be a full code. - Plan Plan: Full medical management is planned. Full CODE STATUS is to continue - Code Status Code Status: Attempt Resuscitation - Time Spent on Advance Care Planning Time spent on advance care plannin min
--- NOTE | 2018-07-15 20:06 | CT Report ---
Reason: Confusion last night, eval for CVA Procedure Date: 07/15/2018 Accession Number: [id number] / [id number] Procedure: CT - HEAD WO CPT Code: FULL RESULT: EXAM: CT HEAD WITHOUT CONTRAST COMPARISON: None. CLINICAL HISTORY: Confusion last night, evaluate for CVA. TECHNIQUE: Axial CT images were obtained from the foramen magnum to the vertex without contrast. In accordance with CT protocol optimization, one or more of the following dose reduction techniques were utilized for this exam: automated exposure control, adjustment of mA and/or KV based on patient size, or use of iterative reconstructive technique. FINDINGS: No intracranial hemorrhage. No masses. Ventricular size is normal. Mastoids are clear. Middle ears are clear. Rightward deviation of the nasal septum is noted. No dense vessels. Generalized volume loss is noted. IMPRESSION: No intracranial hemorrhage, masses, or other discrete acute intracranial process identified. Acute stroke is not excluded by CT.
[2018-07-15] MEDS: QUEtiapine 25 MG TABLET PO PRN (20:55)
[2018-07-16] MEDS: SODIUM CHLORIDE FLUSH 0.9% 10 ML SYRINGE IVP SCH ×3 (03:22→21:08)
[2018-07-16] MEDS: SODIUM CHLORIDE 0.9% 1,000 ML IV SCH ×3 (05:17→22:58)
[2018-07-16 05:53] LABS: BASOPHILS # (AUTO) 0.1 10^3/uL (0.0-0.1); BASOPHILS % (AUTO) 0.8 %; EOSINOPHILS % (AUTO) 0.3 %; HGB - HEMOGLOBIN 10.7 g/dL (12.0-16.0); LYMPHOCYTES # (AUTO) 3.3 10^3/uL (1.5-3.5); MEAN CORPUSCULAR HEMOGLOBIN 30.5 pg (27.0-31.0); MEAN CORPUSCULAR HGB CONC 33.4 g/dL (32.0-36.0); MEAN CORPUSCULAR VOLUME 91.3 fL (81.0-99.0); MEAN PLATELET VOLUME 9.3 fL (7.9-10.8); MONOCYTES # (AUTO) 0.8 10^3/uL (0.0-1.0); MONOCYTES % (AUTO) 8.9 %; NEUTROPHILS # (AUTO) 4.5 10^3/uL (1.5-6.6); PLT - PLATELET COUNT 110 10^3/uL (130-450); RED BLOOD COUNT 3.51 10^6/uL (4.20-5.40); RED CELL DISTRIBUTION WIDTH 16.5 % (12.0-15.0); WHITE BLOOD COUNT 8.7 x10^3/uL (4.8-10.8)
[2018-07-16 06:01] LABS: CALCIUM 8.3 mg/dL (8.5-10.3); CREATININE 1.3 mg/dL (0.4-1.0)
[2018-07-16] MEDS: HEPARIN 5,000 UNIT/ML VIAL SUBQ SCH ×2 (08:14→21:09)
[2018-07-16] MEDS: INSULIN ASPART 300 UNIT/3 ML PEN SUBQ SCH ×4 (08:18→21:12)
[2018-07-16] MEDS: POLYETHYLENE GLYCOL 3350 17 GM PACKET PO SCH (08:19)
[2018-07-16] MEDS: PANTOPRAZOLE 40 MG TABLET PO SCH (08:19)
[2018-07-16] MEDS ORDERED: POTASSIUM CHLORIDE 20 MEQ/15 ML UDC PO SCH (11:17)
--- NOTE | 2018-07-16 17:31 | PROVIDER PROGRESS NOTE ---
Assessment/Plan - Problem List (1) Syncope Qualifiers: Syncope type: unspecified Qualified Code(s): R55 - Syncope and collapse Assessment/Plan: The work-up shows that the etiology was likely volume depletion. Postural vital sign checks will be ordered when she is awake, medications and fluids can be adjusted. (2) Acute kidney injury Assessment/Plan: The creatinine is still elevated. Because it continues to decline, she may not be at her baseline creatinine yet, suggesting continued volume depletion. Continue with po and IV fluid rehydration. Follow BMP daily. She was on HCTZ for blood pressure control, this was discontinued and it should not be resumed. A different blood pressure medication would be preferred. The plan is to return to her memory care living location, by POV. (3) Dementia Qualifiers: Dementia type: Alzheimer's disease Alzheimer's disease onset: unspecified onset Dementia behavioral disturbance: without behavioral disturbance Qualified Code(s): G30.9 - Alzheimer's disease, unspecified; F02.80 - Dementia in other diseases classified elsewhere without behavioral disturbance Assessment/Plan: Stable with poor short and exterminator termite memory, sometimes not recognizing her children. (4) Sleep apnea Assessment/Plan: The Echo done here had shown significant RV dilation and cor pulmonale. The most likely etiology was known untreated sleep apnea. Last night she underwent overnight oximetry and the RT report shows that she only had several episodes of desaturating below 88%, and all were less than 5 minutes. She therefore does not qualify for CPAP nor supplemental oxygen at night. - Current Meds Current Meds: Current Medications Generic Name Dose Route Start Last Admin Trade Name Chiragq PRN Reason Stop Dose Admin Heparin Sodium (Porcine) 5,000 unit 07/14/18 22:00 07/16/18 08:14 SUBQ 5,000 unit BID SCOTT Administration Sodium Chloride 1,000 mls @ 150 mls/hr 07/14/18 22:00 07/16/18 16:27 Normal Saline 0.9% IV 150 mls/hr .Q6H40M SCOTT Infusion Insulin Aspart 1 - 9 unit 07/15/18 08:00 07/16/18 17:16 Novolog SUBQ 1 unit 0800,1200,1700,2100 SCOTT Administration Protocol Pantoprazole Sodium 40 mg 07/15/18 09:00 07/16/18 08:19 Protonix PO 40 mg DAILY SCOTT Administration Polyethylene Glycol 17 gm 05/12/19 09:00 07/16/18 08:19 Miralax PO Not Given DAILY SCOTT Quetiapine Fumarate 25 mg 07/15/18 21:00 07/15/18 20:55 Seroquel PO 25 mg QPM PRN Administration Agitation Sodium Chloride 10 ml 07/15/18 01:00 07/16/18 08:20 Normal Saline Flush 0.9% IVP Not Given 0100,0900,1700 SCOTT - Lab Result Fish Bone Diagrams: 07/16/18 05:37 07/16/18 05:37 - Additional Planning My Orders: My Active Orders 07/15/18 18:13 Night [Nocturnal O2 Saturation Study] [RC] .ONCE 07/15/18 21:00 QUEtiapine [SEROquel] 25 mg PO QPM PRN 07/16/18 11:16 Postural [Vital Signs - Orthostatic] [RC] QSHIFT Subjective - Subjective Patient Reports: Resting Comfortably Objective Vital Signs: Vital Signs - 24 hr 07/15/18 07/16/18 07/16/18 19:38 01:00 02:58 Temperature 36.7 C 36.4 C L Heart Rate [ 69 Brachial] Heart Rate [ 63 79 Monitoring electrodes] Respiratory 18 20 Rate Blood Pressure [Left Brachial artery] Blood Pressure 118/69 127/75 [Right Brachial artery] O2 Saturation 95 92 07/16/18 07/16/18 07:59 15:51 Temperature 36.3 C L 36.2 C L Heart Rate [ Brachial] Heart Rate [ 65 88 Monitoring electrodes] Respiratory 18 24 Rate Blood Pressure 155/82 H [Left Brachial artery] Blood Pressure 133/88 H [Right Brachial artery] O2 Saturation 90 L 10 L Oxygen O2 Source Nasal cannula Oxygen Flow Rate 2 I&O (Last 24 Hrs): Intake and Output Totals x24h 07/14/18 07/15/18 07/16/18 23:59 23:59 23:59 Intake Total 2924.802 6121.833 2970 Output Total 470 450 Balance 7122.522 5901.833 2520 General: Other (Sleeping montoya[pine, appears comfortable) HEENT: Mucous membr. moist/pink Neck: Supple, No JVD Neuro: Disoriented Cardiovascular: Regular rate, No murmurs Respiratory: No respiratory distress, Breath sounds nml Abdomen: Soft, Other (Obese) Extremities: No edema - Results Results: Laboratory Results WBC 8.7 x10^3/uL (4.8-10.8) 07/16/18 05:37 RBC 3.51 10^6/uL (4.20-5.40) L 07/16/18 05:37 Hgb 10.7 g/dL (12.0-16.0) L 07/16/18 05:37 Hct 32.0 % (37.0-47.0) L 07/16/18 05:37 MCV 91.3 fL (81.0-99.0) 07/16/18 05:37 MCH 30.5 pg (27.0-31.0) 07/16/18 05:37 MCHC 33.4 g/dL (32.0-36.0) 07/16/18 05:37 RDW 16.5 % (12.0-15.0) H 07/16/18 05:37 Plt Count 110 10^3/uL (130-450) L 07/16/18 05:37 MPV 9.3 fL (7.9-10.8) 07/16/18 05:37 Neut # (Auto) 4.5 10^3/uL (1.5-6.6) 07/16/18 05:37 Lymph # (Auto) 3.3 10^3/uL (1.5-3.5) 07/16/18 05:37 [place] # (Auto) 0.8 10^3/uL (0.0-1.0) 07/16/18 05:37 Eos # (Auto) 0.0 10^3/uL (0.0-0.7) 07/16/18 05:37 Baso # (Auto) 0.1 10^3/uL (0.0-0.1) 07/16/18 05:37 Absolute Nucleated RBC 0.01 x10^3/uL 07/16/18 05:37 Nucleated RBC % 0.1 /100WBC 07/16/18 05:37 Sodium 141 mmol/L (135-145) 07/16/18 05:37 Potassium 3.4 mmol/L (3.5-5.0) L 07/16/18 05:37 Chloride 112 mmol/L (101-111) H 07/16/18 05:37 Carbon Dioxide 18 mmol/L (21-32) L 07/16/18 05:37 Anion Gap 11.0 (6-13) 07/16/18 05:37 BUN 32 mg/dL (6-20) H 07/16/18 05:37 Creatinine 1.3 mg/dL (0.4-1.0) H 07/16/18 05:37 Estimated GFR (MDRD) 39 (>89) L 07/16/18 05:37 Glucose 110 mg/dL (70-100) H 07/16/18 05:37 POC Whole Bld Glucose 161 mg/dL (70 - 100) H 07/16/18 16:39 Glycated Hemoglobin 6.5 % (4.6-6.2) H 07/14/18 19:32 Estim Average Glucose 140 (70-100) H 07/14/18 19:32 Calcium 8.3 mg/dL (8.5-10.3) L 07/16/18 05:37 Magnesium 1.8 mg/dL (1.7-2.8) 07/16/18 05:00 Total Bilirubin 0.4 mg/dL (0.2-1.0) 07/14/18 19:32 AST 43 IU/L (10-42) H 07/14/18 19:32 ALT 36 IU/L (10-60) 07/14/18 19:32 Alkaline Phosphatase 69 IU/L (42-121) 07/14/18 19:32 Troponin I 0.06 ng/mL (<0.49) 07/14/18 19:32 B-Natriuretic Peptide 571 pg/mL (5-100) H 07/14/18 19:32 Total Protein 7.4 g/dL (6.7-8.2) 07/14/18 19:32 Albumin 3.9 g/dL (3.2-5.5) 07/14/18 19:32 Globulin 3.5 g/dL (2.1-4.2) 07/14/18 19:32 Albumin/Globulin Ratio 1.1 (1.0-2.2) 07/14/18 19:32 Lipase 29 U/L (22-51) 07/14/18 19:32
[2018-07-16] MEDS: QUEtiapine 25 MG TABLET PO PRN (21:09)
[2018-07-17] MEDS ORDERED: SODIUM CHLORIDE 0.9% 1,000 ML IV SCH (00:12)
[2018-07-17] MEDS: SODIUM CHLORIDE FLUSH 0.9% 10 ML SYRINGE IVP SCH ×3 (00:40→17:32)
[2018-07-17 05:09] LABS: CALCIUM 8.5 mg/dL (8.5-10.3); CREATININE 1.4 mg/dL (0.4-1.0)
[2018-07-17 05:40] LABS: BASOPHILS # (AUTO) 0.1 10^3/uL (0.0-0.1); BASOPHILS % (AUTO) 0.9 %; EOSINOPHILS % (AUTO) 0.2 %; HGB - HEMOGLOBIN 10.7 g/dL (12.0-16.0); LYMPHOCYTES # (AUTO) 1.4 10^3/uL (1.5-3.5); LYMPHOCYTES % (AUTO) 20.2 %; MEAN CORPUSCULAR HEMOGLOBIN 30.9 pg (27.0-31.0); MEAN CORPUSCULAR HGB CONC 33.2 g/dL (32.0-36.0); MEAN CORPUSCULAR VOLUME 93.1 fL (81.0-99.0); MEAN PLATELET VOLUME 9.3 fL (7.9-10.8); MONOCYTES # (AUTO) 0.5 10^3/uL (0.0-1.0); MONOCYTES % (AUTO) 7.4 %; NEUTROPHILS # (AUTO) 5.1 10^3/uL (1.5-6.6); NEUTROPHILS % (AUTO) 71.3 %; PLT - PLATELET COUNT 107 10^3/uL (130-450); RED BLOOD COUNT 3.45 10^6/uL (4.20-5.40); RED CELL DISTRIBUTION WIDTH 16.4 % (12.0-15.0); WHITE BLOOD COUNT 7.1 x10^3/uL (4.8-10.8)
[2018-07-17] MEDS: PANTOPRAZOLE 40 MG TABLET PO SCH (08:29)
[2018-07-17] MEDS: INSULIN ASPART 300 UNIT/3 ML PEN SUBQ SCH ×3 (08:29→17:31)
[2018-07-17] MEDS: HEPARIN 5,000 UNIT/ML VIAL SUBQ SCH (08:30)
[2018-07-17] MEDS: POLYETHYLENE GLYCOL 3350 17 GM PACKET PO SCH (08:30)
--- NOTE | 2018-07-17 11:51 | XRAY Report ---
Reason: worse hypoxia, Procedure Date: 07/17/2018 Accession Number: [id number] / [id number] Procedure: XR - Chest 2 View X-Ray CPT Code: 93374 FULL RESULT: EXAM: CHEST RADIOGRAPHY EXAM DATE: 07/17/2018 11:23 AM. CLINICAL HISTORY: Worse hypoxia. COMPARISON: CHEST 1 VIEW 07/15/2018 4:17 PM. TECHNIQUE: 2 views. FINDINGS: Lungs/Pleura: No focal opacities evident. No pleural effusion. No pneumothorax. Normal volumes. Mediastinum: Borderline heart size. Mildly tortuous, calcified aorta. Other: Left breast surgical clips. Upper abdominal surgical clips. Bones appear osteopenic. IMPRESSION: Normal 2-view chest radiography. [facility]
--- NOTE | 2018-07-17 11:51 | Nuclear Medicine Report ---
Reason: hypoxia, elevated ddimer Procedure Date: 07/17/2018 Accession Number: [id number] / [id number] Procedure: NM - Lung Perfusion CPT Code: FULL RESULT: EXAM: VENTILATION/PERFUSION SCAN (V/Q SCAN) EXAM DATE: 07/17/2018 10:57 AM. CLINICAL HISTORY: Hypoxia, elevated ddimer. COMPARISON: CHEST 1 VIEW 07/15/2018 4:17 PM. TECHNIQUE: Patient was administered 39.7 mCi of technetium 99m DTPA aerosol by inhalation and 8 standard ventilation images of the lungs were obtained. Next, the patient was injected with 5.3 mCi of technetium 99m MAA intravenously and 8 standard perfusion images of the lungs were obtained. FINDINGS: Perfusion images demonstrate heterogeneous perfusion to the lungs bilaterally . There is a large segmental perfusion deficit involving the superior and inferior segments of the lingula with evidence of at least partial ventilatory mismatch. There is additionally a large perfusion deficit involving the anterior right lower lobe and RML with evidence of at least partial ventilatory mismatch. Ventilatory images demonstrate moderate central airway deposition consistent with obstructive pulmonary physiology. Comparison chest radiograph demonstrates no significant focal pulmonary opacity. IMPRESSION: 1. Multiple perfusion deficits with apparent ventilatory mismatch, high probability for pulmonary embolism. 2. Moderate central airway deposition consistent with obstructive pulmonary physiology. [facility] The call report notification system was initiated by Dr. Everett Hartley at 11:48 AM on 07/17/2018. ADDENDUM: 07/17/18 12:12 The above call report findings were discussed with Ngozi Romano by Dr. Everett Hartley at 12:12 PM on 07/17/2018.
[2018-07-17] MEDS ORDERED: APIXABAN 2.5 MG TABLET PO SCH ×2 (14:00→21:00)
[2018-07-17 18:31] VITALS: BP 129/77
[2018-07-17] MEDS ORDERED: HYDROmorphone 2 MG/ML VIAL IVP PRN (18:39)
--- NOTE | 2018-07-17 18:56 | Discharge Plan ---
Discharge Plan Disposition: 02 Transfer Acute Care Hosp Condition: Serious Instruction Topics: Apixaban oral tablets No Smoking: If you smoke, Please STOP! Call for help. Follow-up with: Alison Morillo PA-C [Primary Care Provider] -
--- NOTE | 2018-07-17 18:59 | DISCHARGE SUMMARY ---
"Discharge Summary Admit Date: 07/14/18 Discharge Date: 07/15/18 Discharging Provider: Ngozi Romano MD Primary Care Provider: Alison Morillo MD ([facility]) Code Status: Attempt Resuscitation Condition at Discharge: Serious Discharge Disposition: 02 Transfer Acute Care Hosp Discharge Facility Name: [facility] - DIAGNOSES Discharge Diagnoses with Status of Each Condition: 1. Pulmonary emboli 2. Syncope, Resolved 3. Metabolic encephalopathy 4. Acute on chronic kidney injury, resolved. Baseline creatinine is 1.31 5. Diabetes mellitus, type II, uncontrolled, without complications, not on long- term use of insulin 6. Dementia without behavioral disturbances 7. Hypertension 8. Reflux disease 9. Pulmonary hypertension with RVSP at rest 97 mmHg, moderate to severe right ventricular enlargement, severely impaired right ventricular systolic function 10. COPD without exacerbation - HPI History of Present Illness: Patient is an 82 y/o female who presented to the ED with syncope. She resides at [facility] due to Dementia. She had presented to the ED around noon on date of admission because she suddenly became weak, sweaty and unsteady at [facility]. She was found to have a creatinine of 1.5 and a blood glucose of 265. She was given 1L of normal saline and discharged. The family went out to eat at [employer] in celebration of Mother's Day when she became weak again, she was having shallow breathing and her knees buckled. EMS was called and on the way to the ED she had a syncopal episode. Her blood pressure in the ED was 89/57 with a repeat creatinine of 1.7. She was given another bolus of 1L normal saline and saline continued at 200ml/hr. Family reports that she has never had a syncopal episode before. The patient is not able to give a reliable history due to dementia. At the time of my exam, she was fully wake and appeared calm. She could not tell where or why she was in the hospital. She is being admitted for further treatment and work up. History - Past Medical History Cardiovascular: reports: Hypertension, High cholesterol Respiratory: reports: None Neuro: reports: Dementia Endocrine/Autoimmune: reports: Type 2 diabetes GI: reports: None CAR BODY INSPECTOR: reports: None : reports: None HEENT: reports: None Psych: reports: Depression Musculoskeletal: reports: None Derm: reports: None MRSA Hx?: No - CONSULTS | PROCEDURES Procedures: 1. Abdomen pelvis CT significant for sigmoid diverticulosis but no acute diverticulitis. 2. chest x-ray July 15 with no acute cardiopulmonary abnormality 3. Head CT with no intracranial hemorrhage, mass, or other discrete intracranial abnormality 4. Ventilation/perfusion scan as above with with mismatch perfusion deficits. 6. Repeat chest x-ray July 17 to be used with diagnosis of VQ scan showed normal 2 view chest. - HOSPITAL COURSE Hospital Course: With her admission through the ER, the patient was felt to have syncope. Not quite delineated as to the cause. She was not felt to be infected and that she had did not have a fever or an elevated white cell count. Her troponin was 0.06 on admission. There is no signs of arrhythmia on telemetry. She was having mild left lower quadrant abdominal pain and a CT of the abdomen was done and was without acute abnormality, and had only moderate sigmoid diverticulosis without diverticulitis. White cell count was normal. Temperature was 36. And blood pressure was 100/65 with 2 L nasal cannula to raise her O2 sat to 96%. Respiratory rate was 14. Glucose was 235. After being observed overnight, the only new abnormality was that of hypoxemia. She dropped to 88% on room air. Chest x-ray was done on the second day and chest x-ray was clear. White cell count remained normal. Echocardiogram was ordered. Ejection fraction was 55%, severe pulmonary hypertension with a PASP of 97 mmHg. The right ventricle was severely dilated with severely reduced function. Severe tricuspid regurgitation. Throughout this time the patient was on DVT prophylaxis with heparin subcu 5000 units twice daily. The ongoing [facility] process during her stay was that she was dehydrated. Blood pressure was monitored. As well as BUN and creatinine. Blood pressure stella from the initial low blood pressure to 117/69 by the . And she was 154/109 by discharge. They did do orthostatic blood pressure checks on the day of discharge were supine blood pressure was 131/70, sitting blood pressure was 131/78, and standing blood pressure 130/64. Creatinine was initially 1.7. With hydration she dropped to 1.3 on July 16, and was 1.4 on the day of discharge. I called her primary care provider, Alison Morillo. Her baseline creatinine is 1.3. On the day of transfer to [facility] in [place], the patient continued to have an episode of hypoxia in the director hours. She remained afebrile, normotensive, but increasingly lethargic. A d-dimer was done and was elevated at 3121. A VQ scan was ordered because of her creatinine and VQ scan showed her to have multiple perfusion deficits with apparent ventilatory mismatch. High probability for pulmonary embolism. Moderate central airway deposition consistent with obstructive pulmonary physiology. The large segmental perfusion deficits involve the superior and inferior segments of the lingula. She also had large perfusion deficits in the anterior right lower lobe and right middle lobe. The patient was started on Eliquis. At this point, the family expresed dissatisfaction with her care here. I am the third physician to see their mother since I came on service today. For the last 2 days they feel that they have gotten conflicting reports from different providers. They do not have confidence in our ability to continue to take care of their mother and requested transfer to [facility]. I spoke to Dr. Aj Kinsey. He felt comfortable accepting the patient but wanted me to run it past the ICU attending, Dr. Coffey. Dr. Coffey felt the patient did not need to go to the ICU. While she did have evidence of acute on chronic right ventricular strain, blood pressure was now stable. The event probably happened when she had syncope. His recommendation would have been to start IV heparin. But since I had already given Eliquis, he will hold off starting heparin until tomorrow. She is transferred in stable condition with a temperature of 36 to, pulse 113, blood pressure 154/109, respirations 22 and 97% with 2 L. She is confused. This is a baseline demented elderly woman who is quite vivacious, alert, and participates in many family activities. The family feels that there is severe altered mental status with metabolic encephalopathy. She has a regular rate and rhythm with a systolic ejection murmur. Clear lungs. And abdomen is benign, soft, nontender with hypoactive bowel sounds. She is transferred in stable condition. - ALLERGIES Allergies/Adverse Reactions: Allergies Allergy/AdvReac Type Severity Reaction Status Date / Time amitriptyline Allergy Unknown Verified 07/14/18 18:56 celecoxib [From Celebrex] Allergy Unknown Verified 07/14/18 18:56 ciprofloxacin [From Cipro] Allergy Unknown Verified 07/14/18 18:56 hydrocortisone Allergy Unknown Verified 07/14/18 18:56 [From Cortizone-10] metronidazole [From Flagyl] Allergy Unknown Verified 07/14/18 18:56 NSAIDS (Non-Steroidal Allergy Unknown Verified 07/14/18 18:56 Anti-Inflamma oxycodone Allergy Unknown Verified 07/14/18 18:56 Penicillins Allergy Unknown Verified 07/14/18 18:56 risedronate sodium Allergy Unknown Verified 07/14/18 18:56 Sulfa (Sulfonamide Allergy Unknown Verified 07/14/18 18:56 Antibiotics) Tetracyclines Allergy Unknown Verified 07/14/18 18:56 - MEDICATIONS Home Medications: Ambulatory Orders Medication Instructions Recorded Confirmed Atenolol 50 mg PO DAILY 07/14/18 07/15/18 Atorvastatin [Lipitor] 10 mg PO QPM 07/14/18 07/15/18 Cholecalciferol (Vitamin D3) 2,000 units PO DAILY 07/14/18 07/15/18 [Vitamin D3] Escitalopram Oxalate 20 mg PO DAILY 07/14/18 07/15/18 Glimepiride 1 mg PO 0730 07/14/18 07/15/18 Memantine HCl [Memantine HCl ER] 28 mg PO DAILY 07/14/18 07/15/18 Multivitamin [Multiple Vitamins] 1 tab PO DAILY 07/14/18 07/15/18 Omeprazole 40 mg PO QDAC 07/14/18 07/15/18 Rivastigmine Tartrate 6 mg PO 0800,1800 07/14/18 07/15/18 [Rivastigmine] hydroCHLOROthiazide 25 mg PO DAILY 07/14/18 07/15/18 [Hydrochlorothiazide] Cyanocobalamin (Vitamin B-12) 2,500 mcg PO DAILY 07/15/18 07/15/18 [Vitamin B-12 (1000 mcg sublingual)] Home Medications Other | Comments: Medications during her stay: 1. Eliquis 10 mg p.o. twice daily 2. Dilaudid 1 mg IV push every 2 hours as needed pain 3. Sliding scale NovoLog insulin 1 to 9 units subcu AC 3 times daily 4. Protonix 40 mg p.o. daily 5. Normal saline at 75 cc an hour - LABS Result Diagrams: 07/17/18 05:28 07/17/18 04:32 - TIME SPENT Time Spent in Discharge (Minutes): 40"
== END 2018-07-17 19:55 | disposition short-term general hospital (02) | DRG 175 ==
LOC: EDUNIT# → ED 18:45 → MS3 21:16 → OBSVTOIN 07-15 14:34
PROVIDERS: ADMIT Internal Medicine; ATTEND Specialist
DX: I26.99 Other pulmonary embolism without acute cor pulmonale (principal); G93.41 Metabolic encephalopathy; N17.9 Acute kidney failure, unspecified; I27.29 Other secondary pulmonary hypertension; I50.813 Acute on chronic right heart failure; G47.30 Sleep apnea, unspecified; R55 Syncope and collapse; I13.10 Hypertensive heart and chronic kidney disease without heart failure, with stage 1 through stage 4 chronic kidney disease, or unspecified chronic kidney disease; E11.22 Type 2 diabetes mellitus with diabetic chronic kidney disease; N18.9 Chronic kidney disease, unspecified; F02.80 Dementia in other diseases classified elsewhere, unspecified severity, without behavioral disturbance, psychotic disturbance, mood disturbance, and anxiety; R79.89 Other specified abnormal findings of blood chemistry; R42 Dizziness and giddiness; R53.1 Weakness; E86.0 Dehydration; E11.65 Type 2 diabetes mellitus with hyperglycemia; J44.9 Chronic obstructive pulmonary disease, unspecified; I08.1 Rheumatic disorders of both mitral and tricuspid valves; K21.9 Gastro-esophageal reflux disease without esophagitis; E78.5 Hyperlipidemia, unspecified; F32.9 Major depressive disorder, single episode, unspecified; K57.30 Diverticulosis of large intestine without perforation or abscess without bleeding; Z91.19 Patient's noncompliance with other medical treatment and regimen; Z79.84 Long term (current) use of oral hypoglycemic drugs; Z79.899 Other long term (current) drug therapy
CPT/HCPCS: 36415; 70450; 71045; 71046; 74176; 78580; 80048; 80053; 81001; 82009; 82803; 83036; 83690; 83735; 83880; 84484; 85025; 85379; 93005; 93306; 94761; 96360; 96372; 99284; 99285; A9270; G0378; J1170; 81003; 87086

== ENCOUNTER 2020-09-03 19:09 | Outpatient (CLI) | payer MEDICARE, OTHER | END 2020-09-03 19:10 | disposition short-term general hospital (02) | LOC: EMS 19:09 | DX: D64.9 Anemia, unspecified (principal); R10.30 Lower abdominal pain, unspecified | CPT/HCPCS: A0425; A0429 ==

== ENCOUNTER 2021-11-23 13:06 | Outpatient (CLI) | payer MEDICARE, OTHER ==
[2021-11-23 18:07] LABS: BASOPHILS # (AUTO) 0.1 10^3/uL (0.0-0.1); BASOPHILS % (AUTO) 1.1 %; EOSINOPHILS # (AUTO) 0.2 10^3/uL (0.0-0.7); EOSINOPHILS % (AUTO) 3.6 %; HCT - HEMATOCRIT 33.9 % (37.0-47.0); HGB - HEMOGLOBIN 10.6 g/dL (12.0-16.0); LYMPHOCYTES # (AUTO) 1.6 10^3/uL (1.5-3.5); MEAN CORPUSCULAR HEMOGLOBIN 27.7 pg (27.0-31.0); MEAN CORPUSCULAR HGB CONC 31.3 g/dL (32.0-36.0); MEAN CORPUSCULAR VOLUME 88.7 fL (81.0-99.0); MONOCYTES # (AUTO) 0.6 10^3/uL (0.0-1.0); MONOCYTES % (AUTO) 10.5 %; NEUTROPHILS # (AUTO) 2.8 10^3/uL (1.5-6.6); NEUTROPHILS % (AUTO) 53.6 %; PLT - PLATELET COUNT 184 10^3/uL (130-450); RED BLOOD COUNT 3.82 10^6/uL (4.20-5.40); RED CELL DISTRIBUTION WIDTH 15.1 % (12.0-15.0); WHITE BLOOD COUNT 5.2 x10^3/uL (4.8-10.8)
== END 2021-11-23 13:07 | disposition home or self-care (01) ==
LOC: LAB.N 13:06
PROVIDERS: ATTEND Physician Assistant
DX: D62 Acute posthemorrhagic anemia (principal); K92.2 Gastrointestinal hemorrhage, unspecified
CPT/HCPCS: 36415; 85025

== ENCOUNTER 2022-01-03 13:40 | Outpatient (CLI) | payer MEDICARE, OTHER, MEDICAID ==
[2022-01-03 18:04] LABS: BASOPHILS # (AUTO) 0.1 10^3/uL (0.0-0.1); BASOPHILS % (AUTO) 1.1 %; EOSINOPHILS # (AUTO) 0.2 10^3/uL (0.0-0.7); EOSINOPHILS % (AUTO) 3.2 %; HCT - HEMATOCRIT 35.2 % (37.0-47.0); HGB - HEMOGLOBIN 10.5 g/dL (12.0-16.0); LYMPHOCYTES # (AUTO) 2.1 10^3/uL (1.5-3.5); LYMPHOCYTES % (AUTO) 38.1 %; MEAN CORPUSCULAR HEMOGLOBIN 26.3 pg (27.0-31.0); MEAN CORPUSCULAR HGB CONC 29.8 g/dL (32.0-36.0); MEAN PLATELET VOLUME 13.8 fL (7.9-10.8); MONOCYTES # (AUTO) 0.6 10^3/uL (0.0-1.0); MONOCYTES % (AUTO) 10.3 %; NEUTROPHILS # (AUTO) 2.6 10^3/uL (1.5-6.6); NEUTROPHILS % (AUTO) 46.9 %; PLT - PLATELET COUNT 168 10^3/uL (130-450); RED CELL DISTRIBUTION WIDTH 14.8 % (12.0-15.0); WHITE BLOOD COUNT 5.6 x10^3/uL (4.8-10.8)
== END 2022-01-03 13:41 | disposition home or self-care (01) ==
LOC: LAB.N 13:40
PROVIDERS: ATTEND Physician Assistant
DX: D62 Acute posthemorrhagic anemia (principal); K92.2 Gastrointestinal hemorrhage, unspecified
CPT/HCPCS: 36415; 85025

== ENCOUNTER 2022-02-10 10:36 | Outpatient (CLI) | payer MEDICARE, OTHER, MEDICAID | END 2022-02-10 10:37 | disposition home or self-care (01) | LOC: LAB.N 10:36 | PROVIDERS: ATTEND Physician Assistant | DX: D62 Acute posthemorrhagic anemia (principal); K92.2 Gastrointestinal hemorrhage, unspecified | CPT/HCPCS: 36415; 85025 ==

== ENCOUNTER 2022-02-14 14:24 | Outpatient (CLI) | payer MEDICARE, OTHER, MEDICAID ==
[2022-02-14 18:13] LABS: BASOPHILS # (AUTO) 0.1 10^3/uL (0.0-0.1); BASOPHILS % (AUTO) 1.2 %; EOSINOPHILS # (AUTO) 0.1 10^3/uL (0.0-0.7); EOSINOPHILS % (AUTO) 2.2 %; HCT - HEMATOCRIT 32.4 % (37.0-47.0); HGB - HEMOGLOBIN 9.8 g/dL (12.0-16.0); LYMPHOCYTES % (AUTO) 33.7 %; MEAN CORPUSCULAR HEMOGLOBIN 26.8 pg (27.0-31.0); MEAN CORPUSCULAR HGB CONC 30.2 g/dL (32.0-36.0); MEAN CORPUSCULAR VOLUME 88.5 fL (81.0-99.0); MEAN PLATELET VOLUME 13.5 fL (7.9-10.8); MONOCYTES # (AUTO) 0.6 10^3/uL (0.0-1.0); MONOCYTES % (AUTO) 10.2 %; NEUTROPHILS # (AUTO) 3.1 10^3/uL (1.5-6.6); NEUTROPHILS % (AUTO) 52.5 %; PLT - PLATELET COUNT 173 10^3/uL (130-450); RED BLOOD COUNT 3.66 10^6/uL (4.20-5.40); RED CELL DISTRIBUTION WIDTH 15.5 % (12.0-15.0)
== END 2022-02-14 14:25 | disposition home or self-care (01) ==
LOC: LAB.N 14:24
PROVIDERS: ATTEND Physician Assistant
DX: D62 Acute posthemorrhagic anemia (principal); K92.2 Gastrointestinal hemorrhage, unspecified
CPT/HCPCS: 36415; 85025

== ENCOUNTER 2022-04-02 09:49 | Outpatient (CLI) | payer MEDICARE, OTHER, MEDICAID | END 2022-04-02 09:50 | disposition home or self-care (01) | LOC: LAB.N 09:49 | PROVIDERS: ATTEND Registered Nurse | DX: Z53.9 Procedure and treatment not carried out, unspecified reason (principal) | CPT/HCPCS: 36415; 80048; 85025 ==

== ENCOUNTER 2022-05-05 13:15 | Outpatient (CLI) | payer MEDICARE, OTHER, MEDICAID ==
[2022-05-05 17:49] LABS: BASOPHILS # (AUTO) 0.1 10^3/uL (0.0-0.1); BASOPHILS % (AUTO) 1.4 %; EOSINOPHILS # (AUTO) 0.1 10^3/uL (0.0-0.7); EOSINOPHILS % (AUTO) 2.1 %; LYMPHOCYTES # (AUTO) 1.8 10^3/uL (1.5-3.5); MEAN CORPUSCULAR HEMOGLOBIN 22.2 pg (27.0-31.0); MEAN CORPUSCULAR HGB CONC 27.6 g/dL (32.0-36.0); MEAN CORPUSCULAR VOLUME 80.5 fL (81.0-99.0); MONOCYTES # (AUTO) 0.5 10^3/uL (0.0-1.0); NEUTROPHILS # (AUTO) 3.2 10^3/uL (1.5-6.6); NEUTROPHILS % (AUTO) 56.3 %; PLT - PLATELET COUNT 196 10^3/uL (130-450); RED BLOOD COUNT 2.61 10^6/uL (4.20-5.40); RED CELL DISTRIBUTION WIDTH 18.6 % (12.0-15.0); WHITE BLOOD COUNT 5.7 x10^3/uL (4.8-10.8)
[2022-05-05 18:43] LABS: HGB - HEMOGLOBIN 5.8 g/dL (12.0-16.0); PLATELET ESTIMATE, MANUAL NORMAL (130-450,000) (NORMAL); PLATELET MORPHOLOGY NORMAL APPEARANCE (NORMAL); SLIDE REVIEW? Indicated
== END 2022-05-05 13:16 | disposition home or self-care (01) ==
LOC: LAB.N 13:15
PROVIDERS: ATTEND Nurse Practitioner Family
DX: D64.9 Anemia, unspecified (principal)
CPT/HCPCS: 36415; 85025

== ENCOUNTER 2022-05-05 20:42 | Observation (INO) | payer MEDICARE, OTHER, MEDICAID ==
--- NOTE | 2022-05-05 21:10 | ED Physician Documentation ---
History of Present Illness - Stated complaint Stated Complaint: ABNORMAL LABS - Chief complaint Chief Complaint: General - History obtained from History obtained from: Family, EMS - Additonal information Additional information: There is very limited information regarding HPI/ROS due to patient's severe dementia. Patient is unable to contribute at all to HPI/ROS due to her dementia. This patient is brought in by ambulance from [facility]. Per EMS report, the only information they were given by staff at [facility] is that the patient is being sent to the emergency department for a transfusion. The only other information available at the time of presentation to the emergency department is that EMS says that the staff at [facility] indicated that someone from their facility had already contacted one of the physicians here at [facility] and that we should be expecting the patient. I did not receive any such phone call, nor did I received signout from my colleagues at turnover of shift regarding this patient. I am able to see in [facility] records that this patient had a CBC performed earlier today with hemoglobin noted to be at 5.8. The most recent hemoglobin on [facility] records is from February 2022 at which time the hemoglobin was 9.8. Review of Systems Unable to obtain: Dementia PD PAST MEDICAL HISTORY - Past Medical History Cardiovascular: Hypertension, High cholesterol Respiratory: None Neuro: Dementia Endocrine/Autoimmune: Type 2 diabetes GI: None IT APPLICATION DEVELOPMENT MANAGER: None : None HEENT: None Psych: Depression Musculoskeletal: None Derm: None - Past Surgical History Past Surgical History: No General: Colonoscopy HEENT: Cataracts Derm: Other - Present Medications Home Medications: Ambulatory Orders Medication Instructions Recorded Confirmed Atorvastatin [Lipitor] 10 mg PO QPM 07/14/18 07/15/18 Cholecalciferol (Vitamin D3) 2,000 units PO DAILY 07/14/18 07/15/18 [Vitamin D3] Escitalopram Oxalate 20 mg PO DAILY 07/14/18 07/15/18 Glimepiride 1 mg PO 0730 07/14/18 07/15/18 Memantine HCl [Memantine HCl ER] 28 mg PO DAILY 07/14/18 07/15/18 Multivitamin [Multiple Vitamins] 1 tab PO DAILY 07/14/18 07/15/18 Omeprazole 40 mg PO QDAC 07/14/18 07/15/18 Rivastigmine Tartrate 6 mg PO 0800,1800 07/14/18 07/15/18 [Rivastigmine] atenoloL [Atenolol] 50 mg PO DAILY 07/14/18 07/15/18 hydroCHLOROthiazide 25 mg PO DAILY 07/14/18 07/15/18 [Hydrochlorothiazide] Cyanocobalamin (Vitamin B-12) 2,500 mcg PO DAILY 07/15/18 07/15/18 [Vitamin B-12 (1000 mcg sublingual)] - Allergies Allergies/Adverse Reactions: Allergies Allergy/AdvReac Type Severity Reaction Status Date / Time amitriptyline Allergy Unknown Verified 07/14/18 18:56 celecoxib [From Celebrex] Allergy Unknown Verified 07/14/18 18:56 ciprofloxacin [From Cipro] Allergy Unknown Verified 07/14/18 18:56 hydrocortisone Allergy Unknown Verified 07/14/18 18:56 [From Cortizone-10] metronidazole [From Flagyl] Allergy Unknown Verified 07/14/18 18:56 NSAIDS (Non-Steroidal Allergy Unknown Verified 07/14/18 18:56 Anti-Inflamma oxycodone Allergy Unknown Verified 07/14/18 18:56 Penicillins Allergy Unknown Verified 07/14/18 18:56 risedronate sodium Allergy Unknown Verified 07/14/18 18:56 Sulfa (Sulfonamide Allergy Unknown Verified 07/14/18 18:56 Antibiotics) Tetracyclines Allergy Unknown Verified 07/14/18 18:56 - Social History Does the pt smoke?: No Smoking Status: Former smoker Does the pt drink ETOH?: No Does the pt have substance abuse?: No - Immunizations Immunizations are current?: No - POLST Patient has POLST: No POLST Status: Full Code PD ED PE NORMAL - Vitals Vital signs reviewed: Yes - General General: No acute distress, Well developed/nourished, Other (awake, alert, does not follow commands, does not answer any questions. she does make eye contact) - HEENT HEENT: Moist mucous membranes - Cardiac Cardiac: RRR - Respiratory Respiratory: No respiratory distress, Clear bilaterally - Abdomen Abdomen: Normal bowel sounds, Soft, Non tender, Non distended - Derm Derm: Normal color, Warm and dry PD ED PE EXPANDED - Rectal Rectal: Heme Occult Pos - QC +, Normal Tone, Special Services Director present, Other (brown stool (no gross blood nor black/tar appearance), but lab result is guaiac positive). No: Mass, Hemorrhoid Results - Vitals Vitals: Vital Signs - 24 hr 05/05/22 05/05/22 05/05/22 20:48 21:10 22:29 Temperature 36.7 C Heart Rate 83 92 84 Heart Rate [ Monitoring electrodes] Respiratory 24 22 20 Rate Blood Pressure 84/71 L 85/49 L 109/69 Blood Pressure [Left Brachial artery] O2 Saturation 97 98 100 05/05/22 05/05/22 05/05/22 23:35 23:40 23:45 Temperature 36.9 C 36.8 C 36.3 C L Heart Rate Heart Rate [ 80 80 80 Monitoring electrodes] Respiratory 15 15 16 Rate Blood Pressure Blood Pressure 104/53 L 101/77 123/64 [Left Brachial artery] O2 Saturation 100 100 100 05/05/22 05/06/22 05/06/22 23:51 00:00 00:15 Temperature 36.8 C 36.6 C 36.4 C L Heart Rate Heart Rate [ 79 80 81 Monitoring electrodes] Respiratory 16 14 16 Rate Blood Pressure Blood Pressure 130/55 L 114/90 H 110/92 H [Left Brachial artery] O2 Saturation 100 100 100 05/06/22 05/06/22 05/06/22 00:36 00:45 01:00 Temperature 37.2 C 36.6 C 36.7 C Heart Rate Heart Rate [ 79 83 80 Monitoring electrodes] Respiratory 18 17 14 Rate Blood Pressure Blood Pressure 139/78 H 121/104 H 147/55 H [Left Brachial artery] O2 Saturation 100 100 100 05/06/22 05/06/22 05/06/22 01:25 01:30 01:45 Temperature 36.6 C 37.1 C 36.8 C Heart Rate Heart Rate [ 76 76 75 Monitoring electrodes] Respiratory 15 15 16 Rate Blood Pressure Blood Pressure 141/53 H 141/53 H 123/111 H [Left Brachial artery] O2 Saturation 100 100 100 05/06/22 05/06/22 05/06/22 02:00 02:15 02:27 Temperature 36.8 C 36.6 C 36.3 C L Heart Rate 76 Heart Rate [ 76 73 74 Monitoring electrodes] Respiratory 17 13 12 Rate Blood Pressure 135/86 H Blood Pressure 89/77 L 121/68 135/86 H [Left Brachial artery] O2 Saturation 100 99 100 05/06/22 05/06/22 05/06/22 03:07 03:10 03:15 Temperature 36.4 C L 36.2 C L 36.2 C L Heart Rate Heart Rate [ 73 75 75 Monitoring electrodes] Respiratory 13 12 18 Rate Blood Pressure Blood Pressure 134/79 H 142/74 H 141/70 H [Left Brachial artery] O2 Saturation 99 100 100 05/06/22 05/06/22 05/06/22 03:20 03:30 03:45 Temperature 36.4 C L 36.1 C L 36.1 C L Heart Rate Heart Rate [ 75 72 72 Monitoring electrodes] Respiratory 18 14 18 Rate Blood Pressure Blood Pressure 146/72 H 146/72 H 131/68 H [Left Brachial artery] O2 Saturation 99 100 99 05/06/22 05/06/22 05/06/22 04:00 04:15 04:45 Temperature 36.1 C L 36.1 C L Heart Rate 71 Heart Rate [ 71 68 70 Monitoring electrodes] Respiratory 20 14 13 Rate Blood Pressure 103/44 L Blood Pressure 103/44 L 133/70 H 144/76 H [Left Brachial artery] O2 Saturation 98 98 100 05/06/22 05/06/22 05/06/22 05:15 06:00 06:15 Temperature 36.1 C L 35.9 C L Heart Rate 69 Heart Rate [ 69 70 Monitoring electrodes] Respiratory 14 16 13 Rate Blood Pressure 159/74 H Blood Pressure 155/74 H 159/74 H [Left Brachial artery] O2 Saturation 100 100 100 05/06/22 06:54 Temperature 35.7 C L Heart Rate Heart Rate [ 70 Monitoring electrodes] Respiratory 17 Rate Blood Pressure Blood Pressure 168/88 H [Left Brachial artery] O2 Saturation 100 Oxygen O2 Source Room air - Labs Labs: Microbiology 05/05/22 22:20 Occult Blood - Final Stool Laboratory Tests 05/05/22 05/05/22 05/05/22 13:25 21:26 21:26 WBC RBC Hgb Hct MCV MCH MCHC RDW Plt Count MPV Neut # (Auto) Lymph # (Auto) Barron # (Auto) Eos # (Auto) Baso # (Auto) Absolute Nucleated RBC Nucleated RBC % Manual Slide Review Platelet Estimate Platelet Morphology RBC Morph Micro Appear Sodium 143 Potassium 4.2 Chloride 113 H Carbon Dioxide 21 Anion Gap 9.0 BUN 40 H Creatinine 1.3 H Estimated GFR (MDRD) 39 L Glucose 129 H Calcium 8.8 Total Bilirubin 0.4 AST 16 ALT 12 Alkaline Phosphatase 64 Total Protein 5.9 L Albumin 3.3 Globulin 2.6 Albumin/Globulin Ratio 1.3 Lipase 50 Blood Type O NEGATIVE Blood Type Recheck O NEGATIVE Antibody Screen NEGATIVE Crossmatch IS Only See Detail 05/05/22 22:11 WBC 5.6 RBC 2.40 L Hgb 5.2 L* Hct 19.0 L* MCV 79.2 L MCH 21.7 L MCHC 27.4 L RDW 18.6 H Plt Count 169 MPV 11.8 H Neut # (Auto) 3.3 Lymph # (Auto) 1.6 Barron # (Auto) 0.6 Eos # (Auto) 0.1 Baso # (Auto) 0.1 Absolute Nucleated RBC 0.00 Nucleated RBC % 0.0 Manual Slide Review Indicated Platelet Estimate NORMAL (130-450,000) Platelet Morphology NORMAL APPEARANCE RBC Morph Micro Appear 1+ OVALOCYTES Sodium Potassium Chloride Carbon Dioxide Anion Gap BUN Creatinine Estimated GFR (MDRD) Glucose Calcium Total Bilirubin AST ALT Alkaline Phosphatase Total Protein Albumin Globulin Albumin/Globulin Ratio Lipase Blood Type Blood Type Recheck Antibody Screen Crossmatch IS Only - Rads (name of study) CT A/P Radiology: Prelim report reviewed, See rad report PD Medical Decision Making - ED course Complexity details: reviewed old records, reviewed results, re-evaluated patient, considered differential, d/w family ED course: Patient presents via ambulance from a local [facility] facility [facility] with scant information from EMS report which is only that patient is being sent in for a transfusion. As noted above, I am able to find the result of a CBC that was performed earlier today in the outpatient setting with a hemoglobin of 5.8. On [facility]'s emergency department draw her hemoglobin is 5.2. She is guaiac positive by lab test result, although the sample itself was brown and did not evidence any gross blood nor dark black/tarry appearance. Her first 2 blood pressure readings in the ER are in a hypotensive range with systolic blood pressures in the 80s; her blood pressure readings subsequently normalized (prior to any specific intervention) except for one other reading of SBP in 80s, and her blood pressures remained within a normal to mildly elevated range for the remainder of her ED stay. She is typed, crossed, and transfused 2 units of packed red blood cells during her emergency department stay. In reviewing the documentation that is brought in with patient from [facility], there is a POLST form which indicates DNR, but that limited interventions are also desired. I do note in [facility] records that on September 03, 2020, patient was brought by ambulance to [facility] for transfusion. I had the ED ADMINISTRATIVE OPERATIONS COORDINATOR contact [facility] in order to obtain those records, but we subsequently heard back from [facility] that they did not have any records of this patient and there system. I contacted Dr. Summers, on-call surgery for [facility]. His recommendation is admission to [facility] with the plan to undergo upper endoscopy later this morning. This would be contingent upon a discussion with the power of exhibit designer regarding whether they would agree with this plan as well as whether they would be agreeable to undertake this plan at this facility. I then contacted the patient's power of exhibit designer (Jesica Olvera). I reviewed this patient's presentation, test results, the interventions thus far (specifically the transfusion of the packed red blood cells) with Ms. Olvera, and we then discussed the recommendations going forward based on my discussion with the on- call surgeon. Ms. Olvera tells me that she is agreeable, as the power of exhibit designer for this patient, to this plan including admission to [facility] and the plan to undergo upper endoscopy later today. However, she also first wants to get in touch with her sister to make sure that she would also be agreeable with this plan. I subsequently heard back from Jesicaton Olvera, and she tells me that she has now spoken to her sister and that her sister also agrees with the plan to admit to [facility] and to go forward with the upper endoscopy if this is the recommendation from the on-call surgeon. Ms. Jesica Olvera says she lives approximately an hour away and will be leaving shortly to come to the hospital. In the course of this conversation, Ms. Olvera tells me that in regards to the event that took place September 03, 2020 where the patient was taken to [facility], she says that there were no beds available at [facility] and as a result patient was transferred to [facility]. I asked my [facility] to contact [facility] to obtain those records, and a was subsequently in receipt of a fax of the discharge summary from that visit (these records indicate patient was at [facility], having been transferred from the [facility] emergency department). In reviewing his records, they indicate that the initial hemoglobin at [facility] emergency department was 4.0 and that she received 2 units of packed red blood cells transfusion, and then was transferred to [facility] where she underwent an upper endoscopy. [facility] ED ADMINISTRATIVE OPERATIONS COORDINATOR has scanned these records into [facility]; please refer to those records for results of the procedure and subsequent recommendations and disposition. I subsequently discussed this case with Dr. Ngozi Romano, hospitalist for [facility], who accepts patient for admission to [facility]; she will consult Dr. Summers. Departure - Departure Disposition: ED Place in Observation Clinical Impression: Gastrointestinal bleeding Qualifiers: GI bleed type/associated pathology: unspecified gastrointestinal hemorrhage type Qualified Code(s): K92.2 - Gastrointestinal hemorrhage, unspecified Anemia Qualifiers: Anemia type: unspecified type Qualified Code(s): D64.9 - Anemia, unspecified Dementia Qualifiers: Dementia type: Alzheimer's disease Alzheimer's disease onset: unspecified onset Qualified Code(s): G30.9 - Alzheimer's disease, unspecified Condition: Stable Discharge Date/Time: 05/06/22 08:40
[2022-05-05 21:52] LABS: ALBUMIN 3.3 g/dL (3.2-5.5); ALBUMIN/GLOBULIN RATIO 1.3 (1.0-2.2); BILIRUBIN,TOTAL 0.4 mg/dL (0.2-1.0); CALCIUM 8.8 mg/dL (8.5-10.3); CREATININE 1.3 mg/dL (0.4-1.0); POTASSIUM 4.2 mmol/L (3.5-5.0); TOTAL PROTEIN 5.9 g/dL (6.7-8.2)
[2022-05-05 22:16] LABS: BASOPHILS # (AUTO) 0.1 10^3/uL (0.0-0.1); BASOPHILS % (AUTO) 1.1 %; EOSINOPHILS # (AUTO) 0.1 10^3/uL (0.0-0.7); EOSINOPHILS % (AUTO) 1.6 %; LYMPHOCYTES # (AUTO) 1.6 10^3/uL (1.5-3.5); LYMPHOCYTES % (AUTO) 28.2 %; MEAN CORPUSCULAR HEMOGLOBIN 21.7 pg (27.0-31.0); MEAN CORPUSCULAR HGB CONC 27.4 g/dL (32.0-36.0); MEAN CORPUSCULAR VOLUME 79.2 fL (81.0-99.0); MEAN PLATELET VOLUME 11.8 fL (7.9-10.8); MONOCYTES # (AUTO) 0.6 10^3/uL (0.0-1.0); MONOCYTES % (AUTO) 10.2 %; NEUTROPHILS # (AUTO) 3.3 10^3/uL (1.5-6.6); NEUTROPHILS % (AUTO) 58.4 %; PLT - PLATELET COUNT 169 10^3/uL (130-450); RED CELL DISTRIBUTION WIDTH 18.6 % (12.0-15.0); WHITE BLOOD COUNT 5.6 x10^3/uL (4.8-10.8)
[2022-05-05 22:19] LABS: HGB - HEMOGLOBIN 5.2 g/dL (12.0-16.0)
[2022-05-05 22:45] LABS: PLATELET ESTIMATE, MANUAL NORMAL (130-450,000) (NORMAL); PLATELET MORPHOLOGY NORMAL APPEARANCE (NORMAL); SLIDE REVIEW? Indicated
[2022-05-06] MEDS ORDERED: iohexoL-300 100 ML VIAL ONE (01:09)
[2022-05-06] MEDS ORDERED: iohexoL-300 100 ML VIAL IVP ONE (03:00)
[2022-05-06] MEDS ORDERED: MORPHINE 2 MG/ML CARPUJECT IVP PRN (07:47)
[2022-05-06] MEDS ORDERED: ONDANSETRON 4 MG/2 ML VIAL IVP PRN ×2 (07:47→16:53)
[2022-05-06] MEDS ORDERED: ONDANSETRON ODT 4 MG TABLET TL PRN (07:47)
[2022-05-06] MEDS ORDERED: SODIUM CHLORIDE FLUSH 0.9% 10 ML SYRINGE IVP PRN (07:47)
--- NOTE | 2022-05-06 07:58 | HISTORY & PHYSICAL EXAMINATION ---
Chief Complaint - Chief Complaint Chief Complaint: anemia History of Present Illness - Admitted From Admitted From:: [facility] [place] - History Obtained From Records Reviewed: [facility] History obtained from: Dr. Hankins, [facility] H&P 09/07/20 Exam Limitations: patient has dementia - History of Present Illness HPI Comment/Other: 86-year-old elderly female who has dense dementia and lives at home place and asked that she is an unreliable historian. She presents with a referral from her primary care provider, [facility] (a Telehealth SNF service), to be seen in the emergency room ""a blood transfusion". She was anemic at an outpatient lab. That labs showed a hemoglobin of of five-point 8 in the afternoon. Upon transfer to our emergency room she is 5.2. 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 [facility] She [facility] taken to [facility] who did not have a bed But they transfused her 2 units of packed cells. Hemoglobin there was 4 g. [facility] transfer to [facility]. At [place] she was transfused 1 more unit. She had an EGD performed by Dr. 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 Hemostasis was secured. Discharge instructions were to avoid nonsteroidals and to continue proton pump inhibitor. After reviewing her med list from her custodial facility, the patient is on omeprazole. She does not take a nonsteroidal. Per report from the emergency room provider he did question whether she had any changes in stool, emesis, hematochezia, etc. in the home place staff stated there were no such changes. He was able to speak to the power of washroom attendant who discussed it with her sisters. The patient's family is amenable to the patient being placed in observation here. She is already received 2 units of packed cell in the emergency room. I am now being approached to consider observation status for surgical consult and possible EGD. CT of the abdomen was done and shows only diverticulosis without diverticulitis. However on that CT she has a breast cancer. The surgeon has discussed this with the family and it is a known diagnosis but has not been confirmed by pathology. Tumor is now starting to erode through the skin. History - Past Medical History Cardiovascular: reports: Hypertension, High cholesterol, Pulmonary embolism, Atrial fibrillation (Rate controlled, anticoagulation discontinued September 2020 due to GI bleed) Respiratory: reports: None Neuro: reports: Alzhiemer's, Dementia, Other (Restless leg syndrome) Endocrine/Autoimmune: reports: Type 2 diabetes (In September 2020 hemoglobin A1c was 4.8%. Glimepiride was discontinued at that time and her sugars are to be monitored 3 times a week.) GI: reports: GI bleed PROFESSOR OF COUNSELING: reports: Other (Childbirth with spontaneous vaginal deliveries) : reports: None HEENT: reports: None Psych: reports: Depression Musculoskeletal: reports: Osteoarthritis Derm: reports: None MRSA Hx?: No - Past Surgical History General: reports: Colonoscopy, EGD HEENT: reports: Cataracts Derm: reports: Other - Family & Social History Family History: Father: [place] (father: at 51 from [place]) Family History Comment/Other: Extensive family history of dementia Living arrangement: detention Living Situation: With caregiver(s) Social History Notes: She does not smoke, consume alcohol or use illicit drugs - Substance History Use: Uses substance without health or social issues: NONE Abuse: Recurrent use of substance despite neg consequences: NONE Dependence: Experiences withdrawal or developed tolerances: NONE - POLST Patient has POLST: Yes POLST Status: Limited Interventions (DNR) Meds/Allgy - Home Medications Home Medications: Ambulatory Orders Medication Instructions Recorded Confirmed Atorvastatin [Lipitor] 10 mg PO QPM 07/14/18 05/06/22 Cholecalciferol (Vitamin D3) 2,000 units PO DAILY 07/14/18 05/06/22 [Vitamin D3] Multivitamin [Multiple Vitamins] 1 tab PO DAILY 07/14/18 05/06/22 Omeprazole 40 mg PO QDAC 07/14/18 05/06/22 Rivastigmine Tartrate 6 mg PO 0800,1800 07/14/18 05/06/22 [Rivastigmine] Cyanocobalamin (Vitamin B-12) 2,500 mcg PO DAILY 07/15/18 05/06/22 [Vitamin B-12 (1000 mcg sublingual)] Acetaminophen [Tylenol] 2 tab PO Q6H PRN 05/06/22 05/06/22 Ascorbic Acid [Vitamin C] 1 tab PO Q2D 05/06/22 05/06/22 Escitalopram [Lexapro] 1 tab PO DAILY 05/06/22 05/06/22 Ferrous Sulfate 1 tab PO Q2D 05/06/22 05/06/22 Memantine HCl [Namenda Xr] 1 tab PO DAILY 05/06/22 05/06/22 - Allergies Allergies/Adverse Reactions: Allergies Allergy/AdvReac Type Severity Reaction Status Date / Time amitriptyline Allergy Unknown Verified 07/14/18 18:56 celecoxib [From Celebrex] Allergy Unknown Verified 07/14/18 18:56 ciprofloxacin [From Cipro] Allergy Unknown Verified 07/14/18 18:56 hydrocortisone Allergy Unknown Verified 07/14/18 18:56 [From Cortizone-10] metronidazole [From Flagyl] Allergy Unknown Verified 07/14/18 18:56 NSAIDS (Non-Steroidal Allergy Unknown Verified 07/14/18 18:56 Anti-Inflamma oxycodone Allergy Unknown Verified 07/14/18 18:56 Penicillins Allergy Unknown Verified 07/14/18 18:56 risedronate sodium Allergy Unknown Verified 07/14/18 18:56 Sulfa (Sulfonamide Allergy Unknown Verified 07/14/18 18:56 Antibiotics) Tetracyclines Allergy Unknown Verified 07/14/18 18:56 Prior Level of Functionality: Does ambulate slowly, mainly sedentary. Completely dependent on activities of daily living with her intermediate Exam - Vital Signs Reviewed Vital Signs: Yes Vital Signs: Vital Signs x48h Temp Pulse Pulse Resp BP BP Pulse Ox 05/06/22 06:54 35.7 C L 70 17 168/88 H 100 05/06/22 06:15 35.9 C L 70 13 159/74 H 100 05/06/22 06:00 69 16 159/74 H 100 05/06/22 05:15 36.1 C L 69 14 155/74 H 100 05/06/22 04:45 36.1 C L 70 13 144/76 H 100 05/06/22 04:15 36.1 C L 68 14 133/70 H 98 05/06/22 04:00 71 71 20 103/44 L 103/44 L 98 05/06/22 03:45 36.1 C L 72 18 131/68 H 99 05/06/22 03:30 36.1 C L 72 14 146/72 H 100 05/06/22 03:20 36.4 C L 75 18 146/72 H 99 05/06/22 03:15 36.2 C L 75 18 141/70 H 100 05/06/22 03:10 36.2 C L 75 12 142/74 H 100 05/06/22 03:07 36.4 C L 73 13 134/79 H 99 05/06/22 02:27 36.3 C L 74 12 135/86 H 100 05/06/22 02:15 36.6 C 73 13 121/68 99 05/06/22 02:00 36.8 C 76 76 17 135/86 H 89/77 L 100 05/06/22 01:45 36.8 C 75 16 123/111 H 100 05/06/22 01:30 37.1 C 76 15 141/53 H 100 05/06/22 01:25 36.6 C 76 15 141/53 H 100 05/06/22 01:00 36.7 C 80 14 147/55 H 100 05/06/22 00:45 36.6 C 83 17 121/104 H 100 05/06/22 00:36 37.2 C 79 18 139/78 H 100 05/06/22 00:15 36.4 C L 81 16 110/92 H 100 05/06/22 00:00 36.6 C 80 14 114/90 H 100 - Physical Exam General Appearance: positive: No acute distress, Alert, Other (Frowning, suspicious looks at me and everyone. But quiet, cooperative. Does respond yes or no but no spontaneous verbalization) Eyes Bilateral: positive: PERRL, EOMI ENT: positive: No signs of dehydration Neck: positive: No JVD. negative: Stiff neck Respiratory: positive: No respiratory distress. negative: Wheezes, Rales, Rhonchi Cardiovascular: positive: Regular rate & rhythm, Systolic murmur Peripheral Pulses: positive: 1+ Abdomen: positive: Non-tender, No organomegaly, Nml bowel sounds, No distention Skin: positive: Warm, Dry, Pallor, Other (Right breast mass, palpable at about 3 cm with significant peau d'orange, and about 2 cm of central protruding pink keloid type scar that is the cancer) Extremities: positive: Full ROM, Pedal edema Neurologic/Psychiatric: positive: CN's nml (2-12), Disoriented to person, Di soriented to place, Disoriented to time. negative: Motor nml (Sedentary. Not really a walker.No focal deficits) Conclusion/Plan - Problem List (1) Anemia Conclusion/Plan: An 86-year-old female, iron deficiency anemia this could be from blood loss, whether it be from peptic ulcer disease, colitis, or neoplasm. In this patient we already have a history that she has peptic ulcer disease. She is not on any nonsteroidals. She is on a proton pump inhibitor. I will attempt to see if I can track down the EGD report that the ER provider refers to. She was seen at [facility] in [place]. In the meantime have already discussed the case with general surgery. Plan: Observation status Goal is a hgb of >8 due to age. She has received 2 units and I will check post transfusion Hgb to verify if she is at goal After discussion with general surgery, our plan is to do an EGD. If it is positive, and she is adequately transfused, we will treat the ulcer disease, and most likely she will be able to return back to her custodial facility. If the EGD is negative, she will then need a colonoscopy. That can be performed in the outpatient setting. Her primary care provider is JANINE Fuentes s he can refer for colonoscopy. Qualifiers: Anemia type: unspecified type Qualified Code(s): D64.9 - Anemia, unspecified (2) Type 2 diabetes mellitus, controlled Conclusion/Plan: Glucose is 129 here. She is not on any diabetic medication. In review her for discharge from [facility] in September 2020, A1c was too tightly controlled and as such glyburide was discontinued. She has been on 3 times a week glucose checks since that time. There is no report that she is uncontrolled. My plan here will be to check A1c, monitoring fasting glucoses [id number] or with morning lab work on a daily basis but no sliding scale Qualifiers: Diabetes mellitus alf insulin use: without alf use Diabetes mellitus complication status: without complication Qualified Code(s): E11.9 - Type 2 diabetes mellitus without complications (3) Breast mass in female Conclusion/Plan: now starting to erode thru skin. Case discussed with general surgery and we are concerned this will become a bigger issue down the road with growth, pain, and necrotic fungating tissue. We are proposing a core biopsy to at least confirm path, and then starting her on tamoxifen. Goal is to control growth and symptoms and pain, not curative. (4) Alzheimer's dementia Conclusion/Plan: she is on escitalopram and memantine XR. AT this point in, since she is now severe, I would recommend stopping the memantine but that would be a decision for her PCP. Qualifiers: Alzheimer's disease onset: late onset Dementia severity: severe Dementia behavioral or psychological symptom: without behavioral, psychotic, or mood disturbance or anxiety Qualified Code(s): G30.1 - Alzheimer's disease with late onset; F02.C0 - Dementia in other diseases classified elsewhere, severe, without behavioral disturbance, psychotic disturbance, mood disturbance, and anxiety - Lab Results Lab results reviewed: Yes Fish Bones: 05/06/22 13:27 05/05/22 21:26 - Diagnostic Imaging Results Diagnostic Imaging Results: positive: Prelim report reviewed Diagnostic Imaging Results Comments: CT abdomen pelvis without acute findings of the lung bases. Liver is unremarkable. Pancreas, spleen, adrenal glands, kidneys unremarkable. No appendicitis. Metallic densities noted adjacent to the stomach without bowel obstruction. She has changes of sigmoid diverticulosis. No acute diverticulitis. Aorta is not aneurysmal. Core Measures - Anticipated LOS I expect patient to be DC'd or transferred within 96 hours.: Yes - DVT/VTE - Prophylaxis VTE/DVT Device ordered at admit?: Yes
--- NOTE | 2022-05-06 08:21 | CT Report ---
PROCEDURE: ABDOMEN/PELVIS W INDICATIONS: anemia, guaiac positive CONTRAST: Omni 300 100ml TECHNIQUE: After the administration of intravenous contrast, 5 mm thick sections acquired from the diaphragms to the symphysis. 5 mm thick coronal and sagittal reformats were acquired. For radiation dose reducti on, the following was used: automated exposure control, adjustment of mA and/or kV according to rnadee ent size. COMPARISON: 07/14/2018 FINDINGS: Image quality: Excellent. ABDOMEN: Lung bases: Lung bases are clear. Heart size is normal. There is a mass in the right breast which is highly likely right breast carcinoma. There is associated thickening of the right breast skin tiss ue. It measures 1.8 cm in diameter. There is a probable small satellite lesion in the most lateral as pect of the breast which measures approximately 0.5 cm. Solid organs: Liver and spleen are normal in size and enhancement. Question previous partial splenec dheeraj are previous significant splenic trauma. Gallbladder contains tiny gallstones. No gallbladder wa ll thickening. Biliary system is non dilated. Pancreas enhances normally. No adrenal nodules. Kid neys demonstrate normal size and enhancement, without hydronephrosis. Peritoneum and bowel: Bowel loops demonstrate normal wall thickness and caliber. No free fluid or a ir. Extensive surgical clips in the GE junction region. Nodes and vessels: No retroperitoneal or mesenteric adenopathy by size criteria. Aorta and inferior vena cava are normal in size. Miscellaneous: No ventral hernias. PELVIS: Genitourinary: Bladder wall thickness is normal. Miscellaneous: No inguinal hernias or adenopathy. Bones: No suspicious bony lesions. No vertebral body compression fractures. IMPRESSION: 1. 1.8 cm spiculated right breast mass with associated thickening of the skin of the right breast. Th is is consistent with breast carcinoma. There is an associated probable small satellite lesion measur ing 0.5 cm in the lateral breast. 2. Question remote splenic trauma versus partial splenectomy. 3. No evidence of acute process in the abdomen. Preliminary interpretation provided by [facility]. Presence of a very probable right breast carcinoma was discussed with Titus Ervin MD at the time of dictation on 05/06/2022 at 0816 hours Reviewed by: Devonte Patel MD on 05/06/2022 8:19 AM PST Approved by: Devonte Patel MD on 05/06/2022 8:19 AM PST Station ID: [id number]
--- NOTE | 2022-05-06 08:50 | CONSULTATION NOTE ---
Referring Provider Name of Referring Provider:: Dr. Romano Consult Date: 05/06/22 Chief Complaint - Chief Complaint Chief Complaint: Anemia History of Present Illness - Admitted From Admitted From:: ED - History Obtained From History obtained from: Medical Records - History of Present Illness HPI Comment/Other: Natalia is an 86 year old female who was brought to the ED from her SNF for weakness. She was found to have a hemoglobin below 6 and a blood transfusion was started. She was admitted to the Medical Hospitalist Service for evaluation and management and General Surgery was asked to consider EGD. The patient has a history of prior episodes of anemia, the most recent found to be due to a gastric vascular malformation treated with cautery (September 07, 2020). She takes Omeprazole daily. Natalia has severe dementia and is unable to participate in offering a history. Her POA is her daughter Jesica Hawthorne who is on her way to the hospital. History - Past Medical History Cardiovascular: reports: Hypertension, High cholesterol Respiratory: reports: None Neuro: reports: Dementia Endocrine/Autoimmune: reports: Type 2 diabetes GI: reports: None, Other (Gastric vascular ectasia) HAND MOLD MAKER: reports: None : reports: None HEENT: reports: None Psych: reports: Depression Musculoskeletal: reports: None Derm: reports: None MRSA Hx?: No - Past Surgical History General: reports: Colonoscopy HEENT: reports: Cataracts Derm: reports: Other - Family & Social History Family History: Father: [place] (father: at 51 from [place]) Family History Comment/Other: Extensive family history of dementia Living arrangement: alf Living Situation: With caregiver(s) Social History Notes: She does not smoke, consume alcohol or use illicit drugs - Substance History Use: Uses substance without health or social issues: NONE Abuse: Recurrent use of substance despite neg consequences: NONE Dependence: Experiences withdrawal or developed tolerances: NONE - POLST Patient has POLST: Yes POLST Status: Limited Interventions (DNR) Meds/Allgy - Home Medications Home Medications: Ambulatory Orders Medication Instructions Recorded Confirmed Atorvastatin [Lipitor] 10 mg PO QPM 07/14/18 07/15/18 Cholecalciferol (Vitamin D3) 2,000 units PO DAILY 07/14/18 07/15/18 [Vitamin D3] Escitalopram Oxalate 20 mg PO DAILY 07/14/18 07/15/18 Glimepiride 1 mg PO 0730 07/14/18 07/15/18 Memantine HCl [Memantine HCl ER] 28 mg PO DAILY 07/14/18 07/15/18 Multivitamin [Multiple Vitamins] 1 tab PO DAILY 07/14/18 07/15/18 Omeprazole 40 mg PO QDAC 07/14/18 07/15/18 Rivastigmine Tartrate 6 mg PO 0800,1800 07/14/18 07/15/18 [Rivastigmine] atenoloL [Atenolol] 50 mg PO DAILY 07/14/18 07/15/18 hydroCHLOROthiazide 25 mg PO DAILY 07/14/18 07/15/18 [Hydrochlorothiazide] Cyanocobalamin (Vitamin B-12) 2,500 mcg PO DAILY 07/15/18 07/15/18 [Vitamin B-12 (1000 mcg sublingual)] - Allergies Allergies/Adverse Reactions: Allergies Allergy/AdvReac Type Severity Reaction Status Date / Time amitriptyline Allergy Unknown Verified 07/14/18 18:56 celecoxib [From Celebrex] Allergy Unknown Verified 07/14/18 18:56 ciprofloxacin [From Cipro] Allergy Unknown Verified 07/14/18 18:56 hydrocortisone Allergy Unknown Verified 07/14/18 18:56 [From Cortizone-10] metronidazole [From Flagyl] Allergy Unknown Verified 07/14/18 18:56 NSAIDS (Non-Steroidal Allergy Unknown Verified 07/14/18 18:56 Anti-Inflamma oxycodone Allergy Unknown Verified 07/14/18 18:56 Penicillins Allergy Unknown Verified 07/14/18 18:56 risedronate sodium Allergy Unknown Verified 07/14/18 18:56 Sulfa (Sulfonamide Allergy Unknown Verified 07/14/18 18:56 Antibiotics) Tetracyclines Allergy Unknown Verified 07/14/18 18:56 Review of Systems - Other Findings Other Findings: Unable to offer a history due to her dementia Exam - Vital Signs Vital Signs: Vital Signs x48h Temp Pulse Pulse Resp BP BP Pulse Ox 05/06/22 08:31 71 5 L 153/78 H 100 05/06/22 06:54 96.3 F L 70 17 168/88 H 100 05/06/22 06:15 96.6 F L 70 13 159/74 H 100 05/06/22 06:00 69 16 159/74 H 100 05/06/22 05:15 97.0 F L 69 14 155/74 H 100 05/06/22 04:45 97.0 F L 70 13 144/76 H 100 05/06/22 04:15 97.0 F L 68 14 133/70 H 98 05/06/22 04:00 71 71 20 103/44 L 103/44 L 98 05/06/22 03:45 97.0 F L 72 18 131/68 H 99 05/06/22 03:30 97.0 F L 72 14 146/72 H 100 05/06/22 03:20 97.5 F L 75 18 146/72 H 99 05/06/22 03:15 97.2 F L 75 18 141/70 H 100 05/06/22 03:10 97.2 F L 75 12 142/74 H 100 05/06/22 03:07 97.5 F L 73 13 134/79 H 99 05/06/22 02:27 97.3 F L 74 12 135/86 H 100 05/06/22 02:15 97.9 F 73 13 121/68 99 05/06/22 02:00 98.2 F 76 76 17 135/86 H 89/77 L 100 05/06/22 01:45 98.2 F 75 16 123/111 H 100 05/06/22 01:30 98.8 F 76 15 141/53 H 100 05/06/22 01:25 97.9 F 76 15 141/53 H 100 05/06/22 01:00 98.1 F 80 14 147/55 H 100 - Physical Exam General Appearance: positive: No acute distress Eyes Bilateral: positive: Normal inspection ENT: positive: Pharynx nml Neck: positive: Nml inspection Respiratory: positive: Chest non-tender, No respiratory distress Cardiovascular: positive: Regular rate & rhythm Peripheral Pulses: positive: 2+ Abdomen: positive: Non-tender Skin: positive: Color nml, Warm, Dry Conclusion/Plan - Problem List (1) Anemia Qualifiers: Anemia type: unspecified type Qualified Code(s): D64.9 - Anemia, unspecified - Lab Results Lab results reviewed: Yes Fish Bones: 05/05/22 22:11 05/05/22 21:26 - Other Other Results/Comments: Assessment: 1) Anemia from chronic blood loss; The patient is hemodynamically stable 2) History of gastric vascular ectasia Recommendation: 1) Transfusion of 2 units of PRBC 2) EGD this afternoon 3) NPO Consent: Jesica Olvera, the POA for Natalia Wyman, has been counseled for the procedure (EGD with the intent to identify and stop bleeding), it's indications, risks, benefits and expected outcome. We specifically discussed risks associated with anesthesia and injury to surrounding structures which may require additional surgery. I had a discussion with Jesica regarding DNR status during the surgical procedure. DNR will be suspended during that time that the patient is under the care of our anesthesia team. DNR status will be reinstated when the patient leaves the recovery room. Jesica understand(s), agree(s) and consent(s) to the DNR suspension as well as to the planned procedure. Yohannes Summers MD General surgery Service 05/06/22
[2022-05-06] MEDS: SODIUM CHLORIDE 0.9% 1,000 ML IV SCH ×2 (09:11→21:11)
[2022-05-06] MEDS: SODIUM CHLORIDE FLUSH 0.9% 10 ML SYRINGE IVP SCH ×2 (09:12→17:16)
--- NOTE | 2022-05-06 11:09 | PHARMACY PROGRESS NOTE ---
- Best Possible Medication History Admit Date and Time: 05/06/22 0747 Processed by: Pharmacy Medication History completed: Yes Patient Interview: Pt unable to participate Secondary Source(s): Facility MAR as ONLY source (Pt has dementia) As the person ultimately responsible for medication therapy, providers are able to order a medication from an existing home medication list in [facility] via the "Reconcile Routine" prior to Confirmation of that medication by account support analyst. Such practice is discouraged except when the physician, in their clinical judgment, deems that a medical need exists for a medication without regard to previous use.
--- NOTE | 2022-05-06 11:32 | PROVIDER PROGRESS NOTE ---
Progress Note Natalia has a right breast mass that is as yet undiagnosed. A recent MMG regarded it as highly suspicious for malignancy (I have no access to the image but Jesica showed me the report). As sedation would be required for a core biopsy, the family at that time declined further investigation. The mass is 2-3 cm in size on physical examination, non-tender, without satellite lesions and with few palpable axillary lymph nodes. I discussed with Jesica that if we can obtain a definitive diagnosis of this breast mass, it may be amenable to anti-estrogen therapy with the intent to control the advancement of the disease. She is interested in having me obtain a core biopsy while Natalia is under sedation for the EGD to be performed later toda y. Jesica understands that Natalia will have a small skin puncture which will be sutured closed and a pressure dressing to mitigate bruising which is to be expected. She will follow-up with Dr. Cassidy next week for a discussion of the results and options for continued management. Jesica understands the reason for the core biopsy, the risks and benefits to Natalia, and agrees to the proposed procedure. Yohannes Summers MD General Surgery Service 05/06/22
[2022-05-06 13:30] LABS: HCT - HEMATOCRIT 25.9 % (37.0-47.0); HGB - HEMOGLOBIN 8.1 g/dL (12.0-16.0); MEAN CORPUSCULAR HEMOGLOBIN 25.5 pg (27.0-31.0); MEAN CORPUSCULAR HGB CONC 31.3 g/dL (32.0-36.0); MEAN CORPUSCULAR VOLUME 81.4 fL (81.0-99.0); MEAN PLATELET VOLUME 12.7 fL (7.9-10.8); RED BLOOD COUNT 3.18 10^6/uL (4.20-5.40); RED CELL DISTRIBUTION WIDTH 17.2 % (12.0-15.0); WHITE BLOOD COUNT 6.2 x10^3/uL (4.8-10.8)
[2022-05-06] MEDS ORDERED: PROPOFOL 200 MG/20 ML VIAL IVP ONE ×2 (15:30)
[2022-05-06] MEDS ORDERED: EPINEPHrine 1 MG/ML AMP IJ ONE (16:14)
[2022-05-06] MEDS ORDERED: LIDOCAINE MPF 2%-EPI 1:200000 20 ML VIAL ONE (16:25)
[2022-05-06] MEDS ORDERED: LIDOCAINE 1%-EPI 1:100000 30 ML MDV SUBQ ONE (16:31)
[2022-05-06] MEDS ORDERED: LACTATED RINGERS 1,000 ML IV ONE (16:39)
[2022-05-06] MEDS ORDERED: NALOXONE 0.4 MG/ML VIAL IVP PRN (16:53)
[2022-05-06] MEDS ORDERED: fentaNYL 100 MCG/2 ML VIAL IVP PRN (16:53)
[2022-05-06] MEDS ORDERED: ATROPINE ABBOJECT 1 MG/10 ML SYRINGE IVP PRN (16:53)
[2022-05-06] MEDS ORDERED: ePHEDrine 50 MG/ML VIAL IVP PRN (16:53)
[2022-05-06] MEDS ORDERED: EPINEPHrine ABBOJECT 1 MG/10 ML SYRINGE ONE (16:57)
[2022-05-06] MEDS ORDERED: LACTATED RINGERS 1,000 ML IV SCH (17:00)
--- NOTE | 2022-05-06 17:05 | ANESTHESIA POST OP EVALUATION ---
Anesthesia Post Eval - Post Anesthesia Eval Vitals: Last Vital Signs Temp 36.7 C 05/06/22 16:57 Pulse 71 05/06/22 17:03 Resp 16 05/06/22 17:03 BP 132/52 H 05/06/22 17:03 Pulse Ox 99 05/06/22 17:03 O2 Flow Rate CV Function Including HR & BP: Stable Pain Control: Satisfactory Nausea & Vomiting: Negative Mental Status: Baseline Respiratory Status: Airway Patent Hydration Status: Satisfactory Anesthesia Complications: None
--- NOTE | 2022-05-06 17:35 | OPERATIVE REPORT ---
Operative Report - General Admit Date: 05/06/22 - Other Other Information/Narrative: Procedure Note A surgical time out was performed indicating the patient and the procedures to be performed. Surgeon: Yohannes Summers MD Anesthesia - Monitored sedation Specimen - Right breast mass core biopsy EBL - 5 cc Chronic blood loss anemia EGD with clip/epi injection of bleeding gastric vascular ectasia - see full note in endoPRO IQ. 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 She would best be served with Argon beam ablation but in the meantime PPI and blood transfusions as needed may suffice since her last bleeding episode was over 18 months ago. Right Breast Mass Right core needle biopsy - After cleansing the skin of the right breast with chloroprep, the skin under the mass was anesthetized with 1% Lidocaine with epinephrine. A 1 mm skin incision was made with an 11 blade scalpel and a Connor- Cut needle core biopsy instrument was placed through the skin incision and used to obtain several sales representative leather goods core samples of the palpable mass. Bleeding was minimal and the skin incision site was closed with a single 4-0 nylon suture. A pressure dressing was placed over the wound. The patient tolerated the procedure well. Yohannes Summers MD General Surgery Service 05/06/2022
[2022-05-07] MEDS: SODIUM CHLORIDE FLUSH 0.9% 10 ML SYRINGE IVP SCH ×2 (00:17→10:01)
--- NOTE | 2022-05-07 08:25 | Discharge Plan ---
"Discharge Plan for SNF / [facility] - Discharge Plan And Transition Orders Problem Reviewed?: Yes Disposition: 01 Home, Self Care Condition: Stable Allergies and Adverse Reactions: Allergies Allergy/AdvReac Type Severity Reaction Status Date / Time amitriptyline Allergy Unknown Verified 07/14/18 18:56 celecoxib [From Celebrex] Allergy Unknown Verified 07/14/18 18:56 ciprofloxacin [From Cipro] Allergy Unknown Verified 07/14/18 18:56 hydrocortisone Allergy Unknown Verified 07/14/18 18:56 [From Cortizone-10] metronidazole [From Flagyl] Allergy Unknown Verified 07/14/18 18:56 NSAIDS (Non-Steroidal Allergy Unknown Verified 07/14/18 18:56 Anti-Inflamma oxycodone Allergy Unknown Verified 07/14/18 18:56 Penicillins Allergy Unknown Verified 07/14/18 18:56 risedronate sodium Allergy Unknown Verified 07/14/18 18:56 Sulfa (Sulfonamide Allergy Unknown Verified 07/14/18 18:56 Antibiotics) Tetracyclines Allergy Unknown Verified 07/14/18 18:56 Health Concerns: This is an 86-year-old patient who has a previous history of vascular ectasias of the stomach with GI bleed and transfusion requirement in September 2020 and now is brought to our emergency room at the request of her primary care provider who thought her hemoglobin to be low again. Her primary care provider is a telehealth provider so the patient was not physically seen. Hemoglobin was 5.8. In our emergency room when we recheck she was 5.2. She is placed in observation, seen by general surgery, transfused 2 units of packed cells. She also underwent a second EGD which shows watermelon stomach from gastric arteriovenous malformations, numerous. Patient has had stable blood work overnight, and she is now felt stable to return to her residential facility. A second problem identified is that of a breast mass that has been gradually enlarging. In the last 2 weeks it is large even further. Skin changes show classic changes of neoplasm with peau d'orange and a tumor that is protruding from the skin. She underwent a core biopsy to at least identify what type of breast cancer. Plan of Treatment: Please have her see her primary care provider, JANINE Fuentes with [facility], to continue followup care of her breast cancer. I will recommend that she be seen in follow-up by Dr. Titus Cassidy office. The family has stressed that the patient is with limited interventions, DO NOT RESUSCITATE. But if the pathology of the tumor can delineate what type of breast cancer, she may be responsive to is something as simple as tamoxifen on a daily basis. DPOA/daughter who is at the bedside states they are not interested in mastectomy or radiation. Unfortunately this patient is at increased risk for recurrent GI bleeds due to her vascular anatomy of her stomach. Instructions from last GI bleed continue. She is not to take any nonsteroidal therapy, and she is to stay on a proton pump inhibitor. Care Goals: To remain as comfortable as possible in her residential facility until the end of her life. Consider hospice care if her breast cancer continues to progress. Assessment: Patient is densely demented. Cooperative. No behavioral issues during her stay. Her DPOA/daughter is her advocate. Was at the bedside last night when care plan discussed. - SNF / [facility] Transition Orders Admit to (Facility): [facility] Under the care of (Name): JANINE Fuentes with [facility] Discharge Diagnosis: 1. Chronic iron deficiency anemia associated with chronic blood loss 2. Gastric antral vascular ectasia 3. Dementia of Alzheimer's type, severe 4. Breast neoplasm uncertain behavior, presumed malignant 5. Type 2 diabetes mellitus, controlled, without complication, without long- term use of insulin Medicare Certification Statement: Notify PCP of admission and forward orders to primary provider for signature. Weight on admission and: Weekly Other Notification Orders: Call PCP immediately if patient develops dyspnea, chest pain/tightness or edema. House Bowel Program: Yes Additional Bowel Program Orders: If no BM after 2 days, nurse may give M.O.M. 30ml PO PRN and/or ducolax Supp 1 [place] and/or CAMILLA 250mg P.O., and/or senna 1-2 tabs PO. On day 3 nurse may give repeat above order until residents constipation is resolved. Annual Influenza Vaccine (between Nov 04 and June 03): Yes Two-step PPD per [facility] [id number] or approved exception documents: Yes Medication Orders: PLEASE REFER TO THE DISCHARGE MEDICATION LIST. Insulin Orders?: No - Diet Type: No added sugar Texture: Regular Liquids: Thin May have monthly special meal: Yes - Therapies | Activity Activity: Activity as Tolerated Weight Bearing: Full Weight"
[2022-05-07 08:42] LABS: HCT - HEMATOCRIT 24.8 % (37.0-47.0); HGB - HEMOGLOBIN 7.7 g/dL (12.0-16.0); MEAN CORPUSCULAR HEMOGLOBIN 25.4 pg (27.0-31.0); MEAN CORPUSCULAR VOLUME 81.8 fL (81.0-99.0); MEAN PLATELET VOLUME 12.1 fL (7.9-10.8); RED BLOOD COUNT 3.03 10^6/uL (4.20-5.40); RED CELL DISTRIBUTION WIDTH 18.1 % (12.0-15.0); WHITE BLOOD COUNT 5.3 x10^3/uL (4.8-10.8)
--- NOTE | 2022-05-07 09:40 | PROVIDER PROGRESS NOTE ---
Progress Note General Surgery Morning Rounds Note Hospital Day # 2 POD # 1 Assessment: 1) Right breast mass - no immediate post-op issues. The dressing can be left off 2) Chronic blood loss from Gastric Antral Vascular Ectasia - hemodynamically stable 3) Chronic iron deficient anemia due to # 2. Patient remains anemic Recommendation: 1) Transfuse another unit of blood before discharge 2) Continue PPI and iron therapy 3) Arrange for out-patient management for Argon Beam ablation of her GAVE 4) FU Dr. Cassidy for management of her right breast mass. <><><><><><><><><><><><><><> S: No complaints O: VSS; Right breast without ecchymosis. Tumor extension into skin remains the same as preop. Suture in place. Dressing dry and removed. Pain Level: None Labs: Hct 24.8 (25.9 yesterday) @MEMD@, FACS Acute Care Surgery @NOW@; @TD@ [phone]
[2022-05-07 11:42] VITALS: BP 122/60
--- NOTE | 2022-05-08 08:04 | DISCHARGE SUMMARY ---
Discharge Summary Admit Date: 05/06/22 Discharge Date: 05/07/22 Discharging Provider: Ngozi Romano MD Primary Care Provider: JANINE Fuentes [facility] Code Status: Do Not Attempt Resuscitation Condition at Discharge: Stable Discharge Disposition: 01 Home, Self Care - DIAGNOSES Discharge Diagnoses with Status of Each Condition: 1. Chronic iron deficiency anemia associated with chronic blood loss 2. Gastric antral vascular ectasia 3. Dementia of Alzheimer's type, severe 4. Breast neoplasm uncertain behavior, presumed malignant 5. Type 2 diabetes mellitus, controlled, without complication, without long- term use of insulin - HPI History of Present Illness: 86-year-old elderly female who has dense dementia and lives at [facility] and asked that she is an unreliable historian. She presents with a referral from her primary care provider, [facility] (a [facility] service), to be seen in the emergency room ""a blood transfusion". She was anemic at an outpatient lab. That labs showed a hemoglobin of of five-point 8 in the afternoon. Upon transfer to our emergency room she is 5.2. 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 An ambulance [facility] September 2020. She was taken to [facility] who did not have a bed But they transfused her 2 units of packed cells. Hemoglobin there was 4 g. [facility] transfer to [facility]. At [facility] she was transfused 1 more unit. She had an EGD performed by Dr. 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 Hemostasis was secured. Discharge instructions were to avoid nonsteroidals and to continue proton pump inhibitor. After reviewing her med list from her shelter facility, the patient is on omeprazole. She does not take a nonsteroidal. Per report from the emergency room provider he did question whether she had any changes in stool, emesis, hematochezia, etc. in the [facility] staff stated there were no such changes. He was able to speak to the power of patent attorney who discussed it with her sisters. The patient's family is amenable to the patient being placed in observation here. She is already received 2 units of packed cell in the emergency room. I am now being approached to consider observation status for surgical consult and possible EGD. CT of the abdomen was done and shows only diverticulosis without diverticulitis. However on that CT she has a breast cancer. The surgeon has discussed this with the family and it is a known diagnosis but has not been confirmed by pathology. Tumor is now starting to erode through the skin. - Past Medical History Cardiovascular: reports: Hypertension, High cholesterol, Pulmonary embolism, Atrial fibrillation (Rate controlled, anticoagulation discontinued September 2020 due to GI bleed) Respiratory: reports: None Neuro: reports: Alzhiemer's, Dementia, Other (Restless leg syndrome) Endocrine/Autoimmune: reports: Type 2 diabetes (In September 2020 hemoglobin A1c was 4.8%. Glimepiride was discontinued at that time and her sugars are to be monitored 3 times a week.) GI: reports: GI bleed ADVOCACY DIRECTOR: reports: Other (Childbirth with spontaneous vaginal deliveries) : reports: None HEENT: reports: None Psych: reports: Depression Musculoskeletal: reports: Osteoarthritis Derm: reports: None MRSA Hx?: No - Past Surgical History General: reports: Colonoscopy, EGD HEENT: reports: Cataracts Derm: reports: Other - CONSULTS | PROCEDURES Procedures: Esophagogastroduodenoscopy showed evidence of gastral antral vascular ectasia with a single bleeding site controlled with a clip and injection of 3 cc of epinephrine. She would best be served with argon beam ablation and should probably be referred for that after discussion with family. Right breast core needle biopsy - HOSPITAL COURSE Hospital Course: The patient was transfused 2 units of packed cells. Hemoglobin was 5.2 on admission. Was 7.7 at discharge.. She also underwent a right breast biopsy with general surgery as well as an EGD. EGD showed vascular ectasia. She may be a candidate for argon laser therapy or halo therapy to take care of the vascular ectasias of her stomach. These are not done at this hospital and she will need to be referred to an outside facility. She will need to be followed by general surgery to decide what to do with the breast mass. Mainly it is a discussion about whether she is a candidate for tamoxifen or not. At discharge temperature was 36.7. Heart rate 75. Blood pressure 122/60. Respirations 16. 95% on room air. Pleasant, demented elderly female, clear lungs, regular rate and rhythm, and abdomen soft, nontender. She is not to have any nonsteroidal therapy. If she could please follow-up with her primary care provider in the next couple of weeks.Discharge orders were written to return to her assisted living facility.Greater than 30 minutes was spent coordinating discharge - ALLERGIES Allergies/Adverse Reactions: Allergies Allergy/AdvReac Type Severity Reaction Status Date / Time amitriptyline Allergy Unknown Verified 07/14/18 18:56 celecoxib [From Celebrex] Allergy Unknown Verified 07/14/18 18:56 ciprofloxacin [From Cipro] Allergy Unknown Verified 07/14/18 18:56 hydrocortisone Allergy Unknown Verified 07/14/18 18:56 [From Cortizone-10] metronidazole [From Flagyl] Allergy Unknown Verified 07/14/18 18:56 NSAIDS (Non-Steroidal Allergy Unknown Verified 07/14/18 18:56 Anti-Inflamma oxycodone Allergy Unknown Verified 07/14/18 18:56 Penicillins Allergy Unknown Verified 07/14/18 18:56 risedronate sodium Allergy Unknown Verified 07/14/18 18:56 Sulfa (Sulfonamide Allergy Unknown Verified 07/14/18 18:56 Antibiotics) Tetracyclines Allergy Unknown Verified 07/14/18 18:56 - MEDICATIONS Home Medications: Ambulatory Orders Medication Instructions Recorded Confirmed Atorvastatin [Lipitor] 10 mg PO QPM 07/14/18 05/06/22 Cholecalciferol (Vitamin D3) 2,000 units PO DAILY 07/14/18 05/06/22 [Vitamin D3] Multivitamin [Multiple Vitamins] 1 tab PO DAILY 07/14/18 05/06/22 Omeprazole 40 mg PO QDAC 07/14/18 05/06/22 Rivastigmine Tartrate 6 mg PO 0800,1800 07/14/18 05/06/22 [Rivastigmine] Cyanocobalamin (Vitamin B-12) 2,500 mcg PO DAILY 07/15/18 05/06/22 [Vitamin B-12 (1000 mcg sublingual)] Acetaminophen [Tylenol] 2 tab PO Q6H PRN 05/06/22 05/06/22 Ascorbic Acid [Vitamin C] 1 tab PO Q2D 05/06/22 05/06/22 Escitalopram [Lexapro] 1 tab PO DAILY 05/06/22 05/06/22 Ferrous Sulfate 1 tab PO Q2D 05/06/22 05/06/22 Memantine HCl [Namenda Xr] 1 tab PO DAILY 05/06/22 05/06/22 - LABS Result Diagrams: 05/07/22 08:35 05/05/22 21:26
--- NOTE | 2022-05-11 10:07 | ANESTHESIA ---
Pre-Anesthesia VS, & Labs - Diagnosis anemia - Procedure EGD Vital Signs: Temp Pulse Resp BP Pulse Ox O2 Flow Rate 36.7 C 75 16 122/60 95 05/07/22 11:41 05/07/22 11:41 05/07/22 11:41 05/07/22 11:41 05/07/22 11:41 Height: 68 ft Weight (kg): 70.307 kg Body Mass Index: 0.1 BMI Classification: Underweight - NPO >8 hours - Is Patient ?: No - Lab Results Current Lab Results: Laboratory Tests 05/07/22 08:35: WBC 5.3, RBC 3.03 L, Hgb 7.7 L, Hct 24.8 L, MCV 81.8, MCH 25.4 L , MCHC 31.0 L, RDW 18.1 H, Plt Count 143, MPV 12.1 H 05/06/22 13:27: WBC 6.2, RBC 3.18 L, Hgb 8.1 L, Hct 25.9 L, MCV 81.4, MCH 25.5 L , MCHC 31.3 L, RDW 17.2 H, Plt Count 172, MPV 12.7 H 05/05/22 22:11: WBC 5.6, RBC 2.40 L, Hgb 5.2 L*, Hct 19.0 L*, MCV 79.2 L, MCH 21.7 L, MCHC 27.4 L, RDW 18.6 H, Plt Count 169, MPV 11.8 H, Neut # (Auto) 3.3, Lymph # (Auto) 1.6, [place] # (Auto) 0.6, Eos # (Auto) 0.1, Baso # (Auto) 0.1, Absolute Nucleated RBC 0.00, Nucleated RBC % 0.0, Manual Slide Review Indicated, Platelet Estimate NORMAL (130-450,000), Platelet Morphology NORMAL APPEARANCE, RBC Morph Micro Appear 1+ OVALOCYTES 05/05/22 21:26: Sodium 143, Potassium 4.2, Chloride 113 H, Carbon Dioxide 21, Anion Gap 9.0, BUN 40 H, Creatinine 1.3 H, Estimated GFR (MDRD) 39 L, Glucose 129 H, Calcium 8.8, Total Bilirubin 0.4, AST 16, ALT 12, Alkaline Phosphatase 64, Total Protein 5.9 L, Albumin 3.3, Globulin 2.6, Albumin/Globulin Ratio 1.3, Lipase 50 05/05/22 21:26: Blood Type O NEGATIVE, Antibody Screen NEGATIVE, Crossmatch IS Only See Detail 05/05/22 13:25: Blood Type Recheck O NEGATIVE Fish Bones: 05/07/22 08:35 05/05/22 21:26 Home Medications and Allergies Home Medications: Ambulatory Orders Acetaminophen [Tylenol] 2 tab PO Q6H PRN 05/06/22 Ascorbic Acid [Vitamin C] 1 tab PO Q2D 05/06/22 Escitalopram [Lexapro] 1 tab PO DAILY 05/06/22 Ferrous Sulfate 1 tab PO Q2D 05/06/22 Memantine HCl [Namenda Xr] 1 tab PO DAILY 05/06/22 Atorvastatin [Lipitor] 10 mg PO QPM 07/14/18 Cholecalciferol (Vitamin D3) [Vitamin D3] 2,000 units PO DAILY 07/14/18 Multivitamin [Multiple Vitamins] 1 tab PO DAILY 07/14/18 Omeprazole 40 mg PO QDAC 07/14/18 Rivastigmine Tartrate [Rivastigmine] 6 mg PO 0800,1800 07/14/18 Cyanocobalamin (Vitamin B-12) [Vitamin B-12 (1000 mcg sublingual)] 2,500 mcg PO DAILY 07/15/18 Acetaminophen [Tylenol] 2 tab PO Q6H PRN 05/06/22 Ascorbic Acid [Vitamin C] 1 tab PO Q2D 05/06/22 Escitalopram [Lexapro] 1 tab PO DAILY 05/06/22 Ferrous Sulfate 1 tab PO Q2D 05/06/22 Memantine HCl [Namenda Xr] 1 tab PO DAILY 05/06/22 Allergies/Adverse Reactions: Allergies Allergy/AdvReac Type Severity Reaction Status Date / Time amitriptyline Allergy Unknown Verified 07/14/18 18:56 celecoxib [From Celebrex] Allergy Unknown Verified 07/14/18 18:56 ciprofloxacin [From Cipro] Allergy Unknown Verified 07/14/18 18:56 hydrocortisone Allergy Unknown Verified 07/14/18 18:56 [From Cortizone-10] metronidazole [From Flagyl] Allergy Unknown Verified 07/14/18 18:56 NSAIDS (Non-Steroidal Allergy Unknown Verified 07/14/18 18:56 Anti-Inflamma oxycodone Allergy Unknown Verified 07/14/18 18:56 Penicillins Allergy Unknown Verified 07/14/18 18:56 risedronate sodium Allergy Unknown Verified 07/14/18 18:56 Sulfa (Sulfonamide Allergy Unknown Verified 07/14/18 18:56 Antibiotics) Tetracyclines Allergy Unknown Verified 07/14/18 18:56 Anes History & Medical History - Anesthetic History Anesthesia Complications: reports: No previous complications Family history of Anesthesia Complications: Denies Family history of Malignant Hyperthermia: Denies - Medical History Cardiovascular: reports: Hypertension, High cholesterol, Pulmonary embolism, Atrial fibrillation (Rate controlled, anticoagulation discontinued September 2020 due to GI bleed) Pulmonary: reports: None Gastrointestinal: reports: GI bleed Urinary: reports: None Neuro: reports: Alzhiemer's, Dementia, Other (Restless leg syndrome) Musculoskeletal: reports: Osteoarthritis Endocrine/Autoimmune: reports: Type 2 diabetes (In September 2020 hemoglobin A1c was 4.8%. Glimepiride was discontinued at that time and her sugars are to be monitored 3 times a week.) Blood Disorders: reports: Anemia Skin: reports: None Smoking Status: Former smoker - Surgical History General: reports: Colonoscopy, EGD Eyes Ears Nose Throat (EENT): reports: Cataracts Dermatologic: reports: Other Exam General: Alert, Oriented x3, Cooperative Dental: WNL, Dentures full Upper Mouth Openin Fingerbreadth Neck Mobility: Normal Mallampati classification: II Thyromental Distance: 4-6 cm Respiratory: Lungs clear Cardiovascular: Regular rate Plan Anesthesia Type: Total IV Consent for Procedure(s) Verified and Reviewed: Yes Code Status: Attempt Resuscitation ASA classification: 3-Severe systemic disease Is this case an emergency?: No
== END 2022-05-07 12:35 | disposition home or self-care (01) ==
LOC: EDUNIT# → ED 20:42 → MS2 05-06 07:47
PROVIDERS: ADMIT Specialist; ATTEND Specialist
PROC: 0W3P8ZZ Control Bleeding in Gastrointestinal Tract, Via Natural or Artificial Opening Endoscopic (ICD-10-PCS; principal; 2022-05-06 14:45)
PROC: 0HBT3ZX Excision of Right Breast, Percutaneous Approach, Diagnostic (ICD-10-PCS; 2022-05-06 14:45)
DX: K31.811 Angiodysplasia of stomach and duodenum with bleeding (principal); D50.0 Iron deficiency anemia secondary to blood loss (chronic); C50.911 Malignant neoplasm of unspecified site of right female breast; Z17.0 Estrogen receptor positive status [ER+]; E11.9 Type 2 diabetes mellitus without complications; I48.91 Unspecified atrial fibrillation; I10 Essential (primary) hypertension; Z87.891 Personal history of nicotine dependence; Z66 Do not resuscitate; Z86.711 Personal history of pulmonary embolism; K57.30 Diverticulosis of large intestine without perforation or abscess without bleeding; G30.1 Alzheimer's disease with late onset; F02.C0 Dementia in other diseases classified elsewhere, severe, without behavioral disturbance, psychotic disturbance, mood disturbance, and anxiety
CPT/HCPCS: 19100; 36415; 36430; 43255; 74177; 80053; 82272; 83690; 85025; 85027; 86850; 86900; 86901; 86920; 96360; 96361; 99285; G0378; J7120; P9016; Q9967

== ENCOUNTER 2022-06-16 11:20 | Outpatient (CLI) | payer MEDICARE, OTHER, MEDICAID ==
[2022-06-16 18:01] LABS: BASOPHILS # (AUTO) 0.1 10^3/uL (0.0-0.1); BASOPHILS % (AUTO) 1.1 %; EOSINOPHILS # (AUTO) 0.1 10^3/uL (0.0-0.7); EOSINOPHILS % (AUTO) 1.5 %; HCT - HEMATOCRIT 24.5 % (37.0-47.0); LYMPHOCYTES # (AUTO) 1.6 10^3/uL (1.5-3.5); LYMPHOCYTES % (AUTO) 29.8 %; MEAN CORPUSCULAR HEMOGLOBIN 23.8 pg (27.0-31.0); MEAN CORPUSCULAR HGB CONC 28.6 g/dL (32.0-36.0); MEAN CORPUSCULAR VOLUME 83.3 fL (81.0-99.0); MONOCYTES # (AUTO) 0.4 10^3/uL (0.0-1.0); MONOCYTES % (AUTO) 8.3 %; NEUTROPHILS # (AUTO) 3.1 10^3/uL (1.5-6.6); NEUTROPHILS % (AUTO) 58.9 %; PLT - PLATELET COUNT 175 10^3/uL (130-450); RED BLOOD COUNT 2.94 10^6/uL (4.20-5.40); RED CELL DISTRIBUTION WIDTH 18.6 % (12.0-15.0); WHITE BLOOD COUNT 5.3 x10^3/uL (4.8-10.8)
[2022-06-16 19:08] LABS: PLATELET ESTIMATE, MANUAL NORMAL (130-450,000) (NORMAL); PLATELET MORPHOLOGY NORMAL APPEARANCE (NORMAL); SLIDE REVIEW? Indicated
[2022-06-16 19:50] LABS: ESTIMATED AVERAGE GLUCOSE 91 mg/dL (70-100); HEMOGLOBIN A1c% 4.8 % (4.27-6.07)
== END 2022-06-16 11:21 | disposition home or self-care (01) ==
LOC: LAB.N 11:20
PROVIDERS: ATTEND Nurse Practitioner Family
DX: D64.9 Anemia, unspecified (principal); E11.9 Type 2 diabetes mellitus without complications
CPT/HCPCS: 36415; 83036; 85025

== ENCOUNTER 2022-06-17 14:36 | Outpatient (CLI) | payer MEDICARE, OTHER, MEDICAID | END 2022-06-17 23:59 | disposition critical access hospital (66) | LOC: EMS 14:36 | DX: D64.9 Anemia, unspecified (principal); G30.9 Alzheimer's disease, unspecified; F02.80 Dementia in other diseases classified elsewhere, unspecified severity, without behavioral disturbance, psychotic disturbance, mood disturbance, and anxiety | CPT/HCPCS: A0425; A0429 ==

== ENCOUNTER 2022-06-17 14:58 | Emergency (ER) | payer MEDICARE, OTHER, MEDICAID ==
--- NOTE | 2022-06-17 15:18 | ED Physician Documentation ---
History of Present Illness - Stated complaint Stated Complaint: LOW HEMOGLOBIN - Chief complaint Chief Complaint: General - History obtained from History obtained from: EMS - Additonal information Additional information: The patient is brought to the emergency department by EMS for chief complaint of low hemoglobin. The patient apparently had a hemoglobin checked at home place and was found to be 8 according to the medics. The staff does not report any bleeding or complaints of chest pain or shortness of breath. The patient has not had a syncopal episode recently. Medics report that the patient walked herself to the ambulance stretcher. She has been hemodynamically stable in route. She is not anticoagulated. The patient at baseline is demented and is not oriented to anything. She is not able to offer any information at this time. She is at mental baseline, per medics' report. PD PAST MEDICAL HISTORY - Past Medical History Cardiovascular: Hypertension, High cholesterol, Pulmonary embolism, Atrial fibrillation (Rate controlled, anticoagulation discontinued September 2020 due to GI bleed) Respiratory: None Neuro: Alzhiemer's, Dementia, Other (Restless leg syndrome) Endocrine/Autoimmune: Type 2 diabetes (In September 2020 hemoglobin A1c was 4.8%. Glimepiride was discontinued at that time and her sugars are to be monitored 3 times a week.) GI: GI bleed KEG RAISER: Other (Childbirth with spontaneous vaginal deliveries) : None HEENT: None Psych: Depression Musculoskeletal: Osteoarthritis Derm: None - Past Surgical History Past Surgical History: No General: Colonoscopy, EGD HEENT: Cataracts Derm: Other - Present Medications Home Medications: Ambulatory Orders Medication Instructions Recorded Confirmed Atorvastatin [Lipitor] 10 mg PO QPM 07/14/18 05/06/22 Cholecalciferol (Vitamin D3) 2,000 units PO DAILY 07/14/18 05/06/22 [Vitamin D3] Multivitamin [Multiple Vitamins] 1 tab PO DAILY 07/14/18 05/06/22 Omeprazole 40 mg PO QDAC 07/14/18 05/06/22 Rivastigmine Tartrate 6 mg PO 0800,1800 07/14/18 05/06/22 [Rivastigmine] Cyanocobalamin (Vitamin B-12) 2,500 mcg PO DAILY 07/15/18 05/06/22 [Vitamin B-12 (1000 mcg sublingual)] Acetaminophen [Tylenol] 2 tab PO Q6H PRN 05/06/22 05/06/22 Ascorbic Acid [Vitamin C] 1 tab PO Q2D 05/06/22 05/06/22 Escitalopram [Lexapro] 1 tab PO DAILY 05/06/22 05/06/22 Ferrous Sulfate 1 tab PO Q2D 05/06/22 05/06/22 Memantine HCl [Namenda Xr] 1 tab PO DAILY 05/06/22 05/06/22 - Allergies Allergies/Adverse Reactions: Allergies Allergy/AdvReac Type Severity Reaction Status Date / Time amitriptyline Allergy Unknown Verified 06/17/22 15:15 celecoxib [From Celebrex] Allergy Unknown Verified 06/17/22 15:15 ciprofloxacin [From Cipro] Allergy Unknown Verified 06/17/22 15:15 hydrocortisone Allergy Unknown Verified 06/17/22 15:15 [From Cortizone-10] metronidazole [From Flagyl] Allergy Unknown Verified 06/17/22 15:15 NSAIDS (Non-Steroidal Allergy Unknown Verified 06/17/22 15:15 Anti-Inflamma oxycodone Allergy Unknown Verified 06/17/22 15:15 Penicillins Allergy Unknown Verified 06/17/22 15:15 risedronate sodium Allergy Unknown Verified 06/17/22 15:15 Sulfa (Sulfonamide Allergy Unknown Verified 06/17/22 15:15 Antibiotics) Tetracyclines Allergy Unknown Verified 07/14/18 18:56 - Social History Does the pt smoke?: No Smoking Status: Former smoker Does the pt drink ETOH?: No Does the pt have substance abuse?: No - Immunizations Immunizations are current?: No - POLST Patient has POLST: Yes POLST Status: Limited Interventions (DNR) PD ED PE NORMAL - Vitals Vital signs reviewed: Yes - General General: No acute distress, Well developed/nourished, Other (The patient is awake and alert. She answers simple questions with a "yes" or "no".) - HEENT HEENT: Atraumatic, PERRL, EOMI, Moist mucous membranes - Neck Neck: Supple, no meningeal sign - Cardiac Cardiac: RRR, No murmur - Respiratory Respiratory: No respiratory distress, Clear bilaterally - Abdomen Abdomen: Soft, Non tender, Non distended - Rectal Rectal: Other (Brown stool residue noted around anus and in diaper. No gross bl ood. ) - Derm Derm: Warm and dry - Extremities Extremities: No deformity - Neuro Neuro: Alert and oriented X 3 - Psych Psych: Normal mood, Normal affect Results - Vitals Vitals: Vital Signs - 24 hr 06/17/22 06/17/22 06/17/22 15:07 16:46 17:15 Temperature 36.8 C 36.4 C L 36.4 C L Heart Rate 75 Heart Rate [ 76 75 Monitoring electrodes] Respiratory 16 18 16 Rate Blood Pressure 128/64 Blood Pressure 138/68 H 131/76 H [Right] O2 Saturation 97 100 100 Oxygen O2 Source Room air - Labs Labs: Microbiology 06/17/22 15:00 Occult Blood - Final Stool Laboratory Tests 06/17/22 06/17/22 15:28 15:28 WBC 5.3 RBC 2.84 L Hgb 6.7 L* Hct 23.5 L MCV 82.7 MCH 23.6 L MCHC 28.5 L RDW 18.6 H Plt Count 162 Neut # (Auto) 3.1 Lymph # (Auto) 1.5 Villalba # (Auto) 0.6 Eos # (Auto) 0.1 Baso # (Auto) 0.1 Absolute Nucleated RBC 0.00 Nucleated RBC % 0.0 Manual Slide Review Indicated Platelet Estimate NORMAL (130-450,000) Platelet Morphology NORMAL APPEARANCE RBC Morph Micro Appear 1+ OVALOCYTES Blood Type O NEGATIVE Antibody Screen NEGATIVE Crossmatch IS Only See Detail PD Medical Decision Making - ED course Complexity details: reviewed results, re-evaluated patient, considered differential, d/w patient ED course: Hemoglobin was replete repeated here, and a stool guaiac was performed. Departure - Departure Disposition: 01 Home, Self Care Clinical Impression: Anemia Qualifiers: Anemia type: unspecified type Qualified Code(s): D64.9 - Anemia, unspecified Condition: Stable Instructions: ED Anemia Iron Deficiency Comments: Natalia's hemoglobin in the emergency department was 6.7 today, and she was given a unit of blood in transfusion. Given that this anemia is chronic and that she has chronic slow leakage from her upper GI system, there is no further role for inpatient management or further emergent intervention. Natalia will need to follow-up with her primary care team in conjunction with her power of deputy county attorney to determine whether any further intervention is needed or desired. At this point in time she has remained very stable in the emergency department and has been able to get up and walk around and is stable for outpatient management.
[2022-06-17 15:34] LABS: BASOPHILS # (AUTO) 0.1 10^3/uL (0.0-0.1); BASOPHILS % (AUTO) 1.1 %; EOSINOPHILS # (AUTO) 0.1 10^3/uL (0.0-0.7); EOSINOPHILS % (AUTO) 2.3 %; HCT - HEMATOCRIT 23.5 % (37.0-47.0); LYMPHOCYTES # (AUTO) 1.5 10^3/uL (1.5-3.5); LYMPHOCYTES % (AUTO) 27.8 %; MEAN CORPUSCULAR HEMOGLOBIN 23.6 pg (27.0-31.0); MEAN CORPUSCULAR HGB CONC 28.5 g/dL (32.0-36.0); MEAN CORPUSCULAR VOLUME 82.7 fL (81.0-99.0); MONOCYTES # (AUTO) 0.6 10^3/uL (0.0-1.0); MONOCYTES % (AUTO) 10.7 %; NEUTROPHILS # (AUTO) 3.1 10^3/uL (1.5-6.6); NEUTROPHILS % (AUTO) 57.7 %; PLT - PLATELET COUNT 162 10^3/uL (130-450); RED BLOOD COUNT 2.84 10^6/uL (4.20-5.40); RED CELL DISTRIBUTION WIDTH 18.6 % (12.0-15.0); WHITE BLOOD COUNT 5.3 x10^3/uL (4.8-10.8)
[2022-06-17 15:37] LABS: HGB - HEMOGLOBIN 6.7 g/dL (12.0-16.0)
[2022-06-17 16:00] LABS: PLATELET ESTIMATE, MANUAL NORMAL (130-450,000) (NORMAL); PLATELET MORPHOLOGY NORMAL APPEARANCE (NORMAL); SLIDE REVIEW? Indicated
[2022-06-17 19:47] VITALS: BP 112/77
== END 2022-06-17 19:47 | disposition home or self-care (01) ==
LOC: EDUNIT# → ED 14:58
DX: D64.9 Anemia, unspecified (principal); Z87.891 Personal history of nicotine dependence
CPT/HCPCS: 36415; 36430; 82272; 85025; 86850; 86900; 86901; 86920; 99284; 99285; P9016; 82270

== ENCOUNTER 2022-06-17 19:52 | Outpatient (CLI) | payer MEDICARE, OTHER, MEDICAID | END 2022-06-17 23:59 | disposition home or self-care (01) | LOC: EMS 19:52 | PROVIDERS: ATTEND Emergency Medicine | DX: D64.9 Anemia, unspecified (principal); R41.0 Disorientation, unspecified; F03.90 Unspecified dementia, unspecified severity, without behavioral disturbance, psychotic disturbance, mood disturbance, and anxiety | CPT/HCPCS: A0425; A0428 ==

== ENCOUNTER 2022-07-21 10:28 | Outpatient (CLI) | payer MEDICARE, OTHER, MEDICAID ==
--- NOTE | 2022-07-21 19:07 | XRAY Report ---
PROCEDURE: Finger(s) RT INDICATIONS: R MIDDLE FINGER PAIN. TECHNIQUE: AP hand, 2 views of the third finger(s) acquired. COMPARISON: None. FINDINGS: Bones: Flexion at the third TMT and DIP joint is seen. No fractures or dislocations. Osteoarthritic changes are noted throughout right-hand and wrist joints. No gross bony erosive changes. No suspiciou s bony lesions. Soft tissues: No suspicious soft tissue calcifications or masses. IMPRESSION: Right hand and wrist joint osteoarthritis. Flexion at the third PIP and DIP joints. No acute fracture or dislocation. No gross bony erosive changes. Reviewed by: Zeb Leonard MD on 07/21/2022 6:06 PM MABEL Approved by: Zeb Leonard MD on 07/21/2022 6:06 PM MABEL Station ID: [id number]
== END 2022-07-21 10:29 | disposition home or self-care (01) ==
LOC: DI.N 10:28
PROVIDERS: ATTEND Nurse Practitioner Adult Health
DX: M19.041 Primary osteoarthritis, right hand (principal); M19.031 Primary osteoarthritis, right wrist

== ENCOUNTER 2022-08-08 11:04 | Outpatient (CLI) | payer MEDICARE, OTHER, MEDICAID ==
[2022-08-08 18:01] LABS: BASOPHILS # (AUTO) 0.1 10^3/uL (0.0-0.1); EOSINOPHILS # (AUTO) 0.1 10^3/uL (0.0-0.7); EOSINOPHILS % (AUTO) 1.5 %; HCT - HEMATOCRIT 35.4 % (37.0-47.0); HGB - HEMOGLOBIN 10.5 g/dL (12.0-16.0); LYMPHOCYTES # (AUTO) 1.6 10^3/uL (1.5-3.5); LYMPHOCYTES % (AUTO) 26.3 %; MEAN CORPUSCULAR HEMOGLOBIN 26.3 pg (27.0-31.0); MEAN CORPUSCULAR HGB CONC 29.7 g/dL (32.0-36.0); MEAN CORPUSCULAR VOLUME 88.7 fL (81.0-99.0); MONOCYTES # (AUTO) 0.5 10^3/uL (0.0-1.0); NEUTROPHILS # (AUTO) 3.7 10^3/uL (1.5-6.6); PLT - PLATELET COUNT 169 10^3/uL (130-450); RED BLOOD COUNT 3.99 10^6/uL (4.20-5.40); RED CELL DISTRIBUTION WIDTH 19.7 % (12.0-15.0); WHITE BLOOD COUNT 5.9 x10^3/uL (4.8-10.8)
== END 2022-08-08 11:05 | disposition home or self-care (01) ==
LOC: LAB.N 11:04
PROVIDERS: ATTEND Nurse Practitioner Family
DX: D62 Acute posthemorrhagic anemia (principal); K92.2 Gastrointestinal hemorrhage, unspecified
CPT/HCPCS: 36415; 85025

== ENCOUNTER 2022-09-16 08:59 | Day surgery (SDC) | payer MEDICARE, OTHER, MEDICAID ==
[~2022-09-16 08:59] MED LIST: ceFAZolin 2 GM VIAL ONE
[2022-09-16] MEDS ORDERED: LACTATED RINGERS 1,000 ML IV ONE (09:23)
--- NOTE | 2022-09-16 10:57 | ANESTHESIA ---
Pre-Anesthesia VS, & Labs - Diagnosis r metastatic breast ca - Procedure R palliative simple mastectomy Vital Signs: Temp Pulse Resp BP Pulse Ox O2 Flow Rate 36.7 C 78 18 139/67 H 100 0 09/16/22 09:24 09/16/22 09:24 09/16/22 09:24 09/16/22 09:24 09/16/22 09:24 09/16/22 09:24 Height: 5 ft 4 in Weight (kg): 68.04 kg Body Mass Index: 25.7 BMI Classification: Overweight - NPO >8 hours - Is Patient ?: No - Lab Results Current Lab Results: Laboratory Tests 09/16/22 10:22: POC Whole Bld Glucose 103 H Lab results reviewed: Yes Home Medications and Allergies Home Medications: Ambulatory Orders Tamoxifen [Nolvadex] 10 mg PO BID 09/13/22 Atorvastatin [Lipitor] 10 mg PO QPM 07/14/18 Cholecalciferol (Vitamin D3) [Vitamin D3] 2,000 units PO DAILY 07/14/18 Multivitamin [Multiple Vitamins] 1 tab PO DAILY 07/14/18 Omeprazole 40 mg PO QDAC 07/14/18 Rivastigmine Tartrate [Rivastigmine] 6 mg PO 0800,1800 07/14/18 Cyanocobalamin (Vitamin B-12) [Vitamin B-12 (1000 mcg sublingual)] 2,500 mcg PO DAILY 07/15/18 Acetaminophen [Tylenol] 2 tab PO Q6H PRN 05/06/22 Ascorbic Acid [Vitamin C] 1,000 mg PO Q2D 05/06/22 Escitalopram [Lexapro] 10 mg PO DAILY 05/06/22 Ferrous Sulfate 325 mg PO Q2D 05/06/22 Memantine HCl [Namenda Xr] 14 mg PO DAILY 05/06/22 Tamoxifen [Nolvadex] 10 mg PO BID 09/13/22 Allergies/Adverse Reactions: Allergies Allergy/AdvReac Type Severity Reaction Status Date / Time amitriptyline Allergy Unknown Verified 09/16/22 08:56 celecoxib [From Celebrex] Allergy Unknown Verified 09/16/22 08:56 ciprofloxacin [From Cipro] Allergy Unknown Verified 09/16/22 08:56 hydrocortisone Allergy Unknown Verified 09/16/22 08:56 [From Cortizone-10] metronidazole [From Flagyl] Allergy Unknown Verified 09/16/22 08:56 NSAIDS (Non-Steroidal Allergy Unknown Verified 09/16/22 08:56 Anti-Inflamma oxycodone Allergy Unknown Verified 09/16/22 08:56 Penicillins Allergy Unknown Verified 09/16/22 08:56 risedronate sodium Allergy Unknown Verified 09/16/22 08:56 Sulfa (Sulfonamide Allergy Unknown Verified 09/16/22 08:56 Antibiotics) Tetracyclines Allergy Unknown Verified 09/16/22 08:56 Anes History & Medical History - Anesthetic History Anesthesia Complications: reports: No previous complications Family history of Anesthesia Complications: Denies Family history of Malignant Hyperthermia: Denies - Medical History Cardiovascular: reports: Hypertension, High cholesterol, Pulmonary embolism, Atrial fibrillation Pulmonary: reports: None Gastrointestinal: reports: GI bleed Urinary: reports: None Neuro: reports: Alzhiemer's, Dementia, Other (Restless leg syndrome) Musculoskeletal: reports: Osteoarthritis Endocrine/Autoimmune: reports: Type 2 diabetes Blood Disorders: reports: Anemia Skin: reports: None Smoking Status: Former smoker - Surgical History General: reports: Colonoscopy, EGD Eyes Ears Nose Throat (EENT): reports: Cataracts Dermatologic: reports: Other Exam General: Alert, Cooperative Dental: Dentures full Upper Mouth Openin Fingerbreadth Neck Mobility: Normal Mallampati classification: II Thyromental Distance: 4-6 cm Respiratory: Lungs clear, No respiratory distress Cardiovascular: Regular rate Neurological: Normal speech Mental/Cognitive Status: Alert/Oriented X3, Normal for patient Cognitive Status: Within normal limits Plan Anesthesia Type: General Consent for Procedure(s) Verified and Reviewed: Yes Code Status: Attempt Resuscitation ASA classification: 3-Severe systemic disease Is this case an emergency?: No
[2022-09-16] MEDS ORDERED: ePHEDrine 50 MG/ML VIAL IVP PRN (10:59)
[2022-09-16] MEDS ORDERED: ATROPINE ABBOJECT 1 MG/10 ML SYRINGE IVP PRN (10:59)
[2022-09-16] MEDS ORDERED: ONDANSETRON 4 MG/2 ML VIAL IVP PRN ×2 (10:59→13:40)
[2022-09-16] MEDS ORDERED: METOCLOPRAMIDE 10 MG/2 ML VIAL IVP PRN (10:59)
[2022-09-16] MEDS ORDERED: NALOXONE 0.4 MG/ML VIAL IVP PRN (10:59)
[2022-09-16] MEDS ORDERED: fentaNYL 100 MCG/2 ML VIAL IVP PRN (10:59)
[2022-09-16] MEDS ORDERED: LACTATED RINGERS 1,000 ML IV SCH (11:00)
[2022-09-16] MEDS ORDERED: BUPIVACAINE 0.5%-EPI 1:200000 PF 30 ML VIAL ONE (11:03)
[2022-09-16] MEDS ORDERED: fentaNYL 100 MCG/2 ML VIAL ONE ×2 (11:07→12:36)
[2022-09-16] MEDS ORDERED: LIDOCAINE-PF 2% 10 ML AMP SUBQ ONE (11:08)
[2022-09-16] MEDS ORDERED: PROPOFOL 200 MG/20 ML VIAL IVP ONE (11:08)
[2022-09-16] MEDS ORDERED: BUPIVACAINE 0.5%-EPI 1:200000 PF 30 ML VIAL SUBQ ONE (12:00)
[2022-09-16] MEDS ORDERED: ACETAMINOPHEN 1,000 MG/100 ML 1,000 MG/100 ML BAG IV ONE (12:11)
[2022-09-16] MEDS ORDERED: SEVOFLURANE 250 ML LIQUID INH ONE (12:23)
[2022-09-16] MEDS ORDERED: PHENYLEPHRINE 10 MG/ML VIAL ONE (12:55)
[2022-09-16] MEDS ORDERED: LACTATED RINGERS 275 ML IV ONE (13:27)
--- NOTE | 2022-09-16 13:29 | OPERATIVE REPORT ---
Operative Report - General Procedure Date: 09/16/22 Planned Procedure: Palliative right simple mastectomy Pre-Op Diagnosis: Metastatic right breast cancer that has eroded through the skin Procedure Performed: Palliative right simple mastectomy with in-transit lymph node removed as well. Post Op Diagnosis: Same - Procedure Note Primary Surgeon: Titus Cassidy MD Anesthesia Provider: Mainor Pringle CRNA Anesthesia Technique: General LMA, Local (30 mL of half percent Marcaine with epinephrine) IV Fluids (mL): 700 Estimated Blood Loss (mL): 50 Drain/Tube Type: Other (None) Complications: None. - Other Other Information/Narrative: After verbal and written informed consent was obtained detailing the operation, the alternatives the operation including no operation, risks of infection, bleeding requiring transfusion with its risks, nerve injury, and and after I met with the patient confirming the surgery and the site of surgery, the patient was brought to the operative suite and placed supine on the operating table. Great care was taken to avoid pressure points to prevent pressure necrosis or nerve injury. Monitoring devices were applied along with TEDs and pneumatic compression stockings (to prevent DVT). The patient received preoperative antibiotics for surgical prophylaxis. Mainor Pringle CRNA sedated and anesthetized the patient for the entire procedure. The patient was prepped and draped in the usual sterile manner. With the patient draped my initials were clearly visible. A "time in" then confirmed that the patient was identified with 3 identifiers (name, date, and medical record number), the history and physical was updated and in the chart, the signed consent confirming the procedure was in the chart, the patient was in the correct position, the aforementioned prophylactic measures were in place or given, we had the correct personnel and equipment to complete the procedure and that anesthesia and the surgical team were given an opportunity to express any concerns. With the agreement of everyone in the room we proceeded with the operation. An elliptical incision was made encompassing the cancer as well as the portion that had eroded through the skin and any thick skin. In other words the incision was dictated by the cancer. Superior and inferior flaps were raised using Bovie electrocautery. Hemostasis was obtained using Bovie electrocautery. The largest excision that could be done there were allowed for closure of the skin without undue tension is exactly what was performed. Once the superior and inferior flaps were completed the breast was dissected off of the pectoralis major fascia using Bovie electrocautery. Perforating bleeders were controlled using Bovie electrocautery. The dissection of the breast started medially and progressed laterally. Once the lateral aspect of the breast was encountered there was at least 1 in-transit node that was clearly positive for for breast cancer and was included with the specimen. There may be more. Examination of the axilla revealed multiple rockhard lymph nodes consistent with metastatic breast cancer. These were not addressed surgically. The specimen was marked with a short silk stitch superiorly and a long silk stitch laterally. This was sent off the operative field and permission was given to send it to pathology. The wound was then copiously irrigated using warm sterile water. Preoperatively the decision had been made not to use a drain due to the patient's mentation and medical condition. The subcutaneous fat and tissue was approximated using i nterrupted 2-0 Vicryl sutures in a [id number] fashion. This allowed the wound to come together without any undue tension. A 2-0 Vicryl suture was then started medially and run laterally to approximate the skin. Once this was in place it was clear that an additional 4-0 Monocryl was not needed. A little small separation at the medial most aspect of the wound was closed using a 4-0 Monocryl. The skin was cleaned of its prep and Dermabond was applied. The incision was then injected with 30 mL of half percent Marcaine with epinephrine for pain control. A dressing was applied. At this point a timeout was performed that confirmed that all counts were correct x2, the procedure that was performed, the blood loss, the IV fluids administered, the patient's condition, and any concerns of the operating team had. Having tolerated the procedure well, the patient was taken recovery room in good and stable condition. The plan is for outpatient discharge when the patient is adequately recovered. CPT 57760 This document was created in part using voice recognition technology. Because of the inherent limitations of the system, occasional same sounding word substitutions and grammatical errors do occur and persist despite proofreading. Please read this document for content.
[2022-09-16] MEDS ORDERED: HYDROmorphone 0.5 MG/0.5 ML SYRINGE IVP PRN (13:40)
[2022-09-16] MEDS ORDERED: HYDROcod/ACETAM 5/325 MG TABLET PO PRN (13:42)
--- NOTE | 2022-09-16 14:38 | ANESTHESIA POST OP EVALUATION ---
Anesthesia Post Eval - Post Anesthesia Eval Vitals: Last Vital Signs Temp 36.1 C L 09/16/22 14:30 Pulse 73 09/16/22 14:30 Resp 16 09/16/22 14:30 BP 142/62 H 09/16/22 14:30 Pulse Ox 94 09/16/22 14:30 O2 Flow Rate 0 09/16/22 09:24 CV Function Including HR & BP: Stable Pain Control: Satisfactory Nausea & Vomiting: Negative Mental Status: Baseline Respiratory Status: Airway Patent Hydration Status: Satisfactory Anesthesia Complications: None
[2022-09-16 14:52] VITALS: BP 137/72
== END 2022-09-16 09:00 | disposition home or self-care (01) ==
LOC: SDS 08:59
PROVIDERS: ATTEND Surgery
PROC: 07B50ZX Excision of Right Axillary Lymphatic, Open Approach, Diagnostic (ICD-10-PCS; 2022-09-16)
PROC: 0HBT0ZZ Excision of Right Breast, Open Approach (ICD-10-PCS; principal; 2022-09-16 10:15)
DX: C50.911 Malignant neoplasm of unspecified site of right female breast (principal); C77.3 Secondary and unspecified malignant neoplasm of axilla and upper limb lymph nodes; Z17.0 Estrogen receptor positive status [ER+]; E11.9 Type 2 diabetes mellitus without complications; I10 Essential (primary) hypertension
CPT/HCPCS: 19303; J0131; J3490; J7120

== ENCOUNTER 2022-10-26 09:25 | Outpatient (CLI) | payer MEDICARE, OTHER, MEDICAID ==
[2022-10-26 12:39] LABS: BASOPHILS # (AUTO) 0.1 10^3/uL (0.0-0.1); BASOPHILS % (AUTO) 1.4 %; EOSINOPHILS # (AUTO) 0.2 10^3/uL (0.0-0.7); EOSINOPHILS % (AUTO) 4.4 %; HCT - HEMATOCRIT 34.4 % (37.0-47.0); HGB - HEMOGLOBIN 10.3 g/dL (12.0-16.0); LYMPHOCYTES # (AUTO) 1.6 10^3/uL (1.5-3.5); LYMPHOCYTES % (AUTO) 31.7 %; MEAN CORPUSCULAR HEMOGLOBIN 28.5 pg (27.0-31.0); MEAN CORPUSCULAR HGB CONC 29.9 g/dL (32.0-36.0); MEAN CORPUSCULAR VOLUME 95.3 fL (81.0-99.0); MONOCYTES # (AUTO) 0.3 10^3/uL (0.0-1.0); MONOCYTES % (AUTO) 5.8 %; NEUTROPHILS # (AUTO) 2.8 10^3/uL (1.5-6.6); NEUTROPHILS % (AUTO) 56.5 %; PLT - PLATELET COUNT 159 10^3/uL (130-450); RED BLOOD COUNT 3.61 10^6/uL (4.20-5.40); RED CELL DISTRIBUTION WIDTH 15.1 % (12.0-15.0)
[2022-10-26 12:59] LABS: CALCIUM 9.2 mg/dL (8.5-10.3); CREATININE 1.3 mg/dL (0.6-1.3); POTASSIUM 4.2 mmol/L (3.5-4.5)
== END 2022-10-26 09:26 | disposition home or self-care (01) ==
LOC: LAB.N 09:25
PROVIDERS: ATTEND Nurse Practitioner Family
DX: E11.9 Type 2 diabetes mellitus without complications (principal); D50.0 Iron deficiency anemia secondary to blood loss (chronic)
CPT/HCPCS: 36415; 80048; 85025

== ENCOUNTER 2022-12-08 10:51 | Outpatient (CLI) | payer MEDICARE, OTHER, MEDICAID ==
[2022-12-08 17:46] LABS: BASOPHILS # (AUTO) 0.1 10^3/uL (0.0-0.1); BASOPHILS % (AUTO) 1.6 %; EOSINOPHILS # (AUTO) 0.2 10^3/uL (0.0-0.7); HCT - HEMATOCRIT 36.3 % (37.0-47.0); HGB - HEMOGLOBIN 11.8 g/dL (12.0-16.0); LYMPHOCYTES # (AUTO) 1.6 10^3/uL (1.5-3.5); LYMPHOCYTES % (AUTO) 29.1 %; MEAN CORPUSCULAR HEMOGLOBIN 29.2 pg (27.0-31.0); MEAN CORPUSCULAR HGB CONC 32.5 g/dL (32.0-36.0); MEAN CORPUSCULAR VOLUME 89.9 fL (81.0-99.0); MEAN PLATELET VOLUME 13.7 fL (7.9-10.8); MONOCYTES # (AUTO) 0.4 10^3/uL (0.0-1.0); MONOCYTES % (AUTO) 7.5 %; NEUTROPHILS # (AUTO) 3.2 10^3/uL (1.5-6.6); NEUTROPHILS % (AUTO) 57.6 %; PLT - PLATELET COUNT 127 10^3/uL (130-450); RED BLOOD COUNT 4.04 10^6/uL (4.20-5.40); RED CELL DISTRIBUTION WIDTH 14.1 % (12.0-15.0); WHITE BLOOD COUNT 5.5 x10^3/uL (4.8-10.8)
== END 2022-12-08 10:52 | disposition home or self-care (01) ==
LOC: LAB.N 10:51
PROVIDERS: ATTEND Nurse Practitioner Family
DX: E11.9 Type 2 diabetes mellitus without complications (principal); D50.0 Iron deficiency anemia secondary to blood loss (chronic)
CPT/HCPCS: 36415; 85025

== ENCOUNTER 2022-12-21 13:54 | Outpatient (CLI) | payer MEDICARE, OTHER, MEDICAID | END 2022-12-21 13:55 | disposition critical access hospital (66) | LOC: EMS 13:54 | DX: M79.605 Pain in left leg (principal); M79.89 Other specified soft tissue disorders | CPT/HCPCS: A0425; A0429 ==

== ENCOUNTER 2022-12-21 14:25 | Emergency (ER) | payer MEDICARE, OTHER, MEDICAID ==
[2022-12-21 14:42] VITALS: BP 122/94; O2SAT 100
--- NOTE | 2022-12-21 14:42 | ED Physician Documentation ---
History of Present Illness - Stated complaint Stated Complaint: SWOLLEN LEGS - Chief complaint Chief Complaint: Ext Problem - History obtained from History obtained from: EMS - Additonal information Additional information: 87-year-old woman who had extensive PEs about 4 5 years ago. Earlier this year had GI bleeding and anticoagulation was stopped. Couple months ago had a mastectomy and over the last couple of days she has been complaining of leg pain and is walking less. History is difficult because she is very demented. PD PAST MEDICAL HISTORY - Past Medical History Cardiovascular: Hypertension, High cholesterol, Pulmonary embolism, Atrial fibrillation Respiratory: None Neuro: Alzhiemer's, Dementia, Other (Restless leg syndrome) Endocrine/Autoimmune: Type 2 diabetes GI: GI bleed [employer]OG[employer]ER: Other (Childbirth with spontaneous vaginal deliveries) : None HEENT: None Psych: Depression Musculoskeletal: Osteoarthritis Derm: None - Past Surgical History Past Surgical History: No General: Colonoscopy, EGD HEENT: Cataracts Derm: Other - Present Medications Home Medications: Ambulatory Orders Medication Instructions Recorded Confirmed Atorvastatin [Lipitor] 10 mg PO QPM 07/14/18 09/13/22 Cholecalciferol (Vitamin D3) 2,000 units PO DAILY 07/14/18 09/13/22 [Vitamin D3] Multivitamin [Multiple Vitamins] 1 tab PO DAILY 07/14/18 09/13/22 Omeprazole 40 mg PO QDAC 07/14/18 09/13/22 Rivastigmine Tartrate 6 mg PO 0800,1800 07/14/18 09/13/22 [Rivastigmine] Cyanocobalamin (Vitamin B-12) 2,500 mcg PO DAILY 07/15/18 09/13/22 [Vitamin B-12 (1000 mcg sublingual)] Acetaminophen [Tylenol] 2 tab PO Q6H PRN 05/06/22 09/13/22 Ascorbic Acid [Vitamin C] 1,000 mg PO Q2D 05/06/22 09/13/22 Escitalopram [Lexapro] 10 mg PO DAILY 05/06/22 09/13/22 Ferrous Sulfate 325 mg PO Q2D 05/06/22 09/13/22 Memantine HCl [Namenda Xr] 14 mg PO DAILY 05/06/22 09/13/22 Tamoxifen [Nolvadex] 10 mg PO BID 09/13/22 09/13/22 Docusate Sodium 250Mg Capsule 250 mg PO DAILY #10 cap 09/16/22 [Colace 250Mg Capsule] HYDROcod/ACETAM 5/325 [[place] 5/325] 1 each PO Q4H PRN #7 tablet 09/16/22 Apixaban [Eliquis] 2 tab PO BID #90 tablet 12/21/22 - Allergies Allergies/Adverse Reactions: Allergies Allergy/AdvReac Type Severity Reaction Status Date / Time amitriptyline Allergy Unknown Verified 09/16/22 08:56 celecoxib [From Celebrex] Allergy Unknown Verified 09/16/22 08:56 ciprofloxacin [From Cipro] Allergy Unknown Verified 09/16/22 08:56 hydrocortisone Allergy Unknown Verified 09/16/22 08:56 [From Cortizone-10] metronidazole [From Flagyl] Allergy Unknown Verified 09/16/22 08:56 NSAIDS (Non-Steroidal Allergy Unknown Verified 09/16/22 08:56 Anti-Inflamma oxycodone Allergy Unknown Verified 09/16/22 08:56 Penicillins Allergy Unknown Verified 09/16/22 08:56 risedronate sodium Allergy Unknown Verified 09/16/22 08:56 Sulfa (Sulfonamide Allergy Unknown Verified 09/16/22 08:56 Antibiotics) Tetracyclines Allergy Unknown Verified 09/16/22 08:56 - Social History Does the pt smoke?: No Smoking Status: Former smoker Does the pt drink ETOH?: No Does the pt have substance abuse?: No - Immunizations Immunizations are current?: No - POLST Patient has POLST: Yes POLST Status: Limited Interventions (DNR) PD ED PE NORMAL - Vitals Vital signs reviewed: Yes (Normal heart rate and pulse ox) - General General: Other (She is alert and oriented to person and follow simple commands but cannot give any history.) - Cardiac Cardiac: RRR, No murmur - Extremities Extremities: Other (Discoloration and swelling of the entirety of the left leg with normal pedal pulses.) Results - Vitals Vitals: Vital Signs - 24 hr 12/21/22 14:36 Temperature 36.3 C L Heart Rate 77 Respiratory 14 Rate Blood Pressure 122/94 H O2 Saturation 100 Oxygen O2 Source Room air - Rads (name of study) LLE sono Relevant Findings:: Prelim report reviewed PD Medical Decision Making - ED course ED course: Looks as though she probably has extensive DVT in the left leg clinically. Ultrasound and basic blood work ordered. I spoke with the daughter by phone after initial evaluation and discussed the findings and work-up. Discussed with her that if she were to start bleeding while on anticoagulation IVC filter at a tertiary facility might be considered but consideration to goals of care at that time would have to be brought into play as she is profoundly demented. I will call the daughter back after completion of ultrasound. Her ultrasound was not unexpectedly very positive for extensive DVT in the left leg. Called the daughter back and discussed with her that starting anticoagulation right now is recommended but she is at high risk of bleeding given her history. Departure - Departure Disposition: Home, Self Care Clinical Impression: Deep vein thrombosis Qualifiers: DVT location: lower extremity Affected thrombotic vein of extremity: femoral Chronicity: acute Laterality: left Qualified Code(s): I82.412 - Acute embolism and thrombosis of left femoral vein Condition: Good Record reviewed to determine appropriate education?: Yes Instructions: ED DVT Prescriptions: Apixaban [Eliquis] 2 tab PO BID #90 tablet Comments: She does have an extensive DVT in the right leg. I am starting the blood thinner she used to be on. Her stool should be viewed after stooling to make sure is not dark tarry or bloody and I would recommend that the frequency of her routine blood draws be increased to weekly at the beginning since she has a history of bleeding. Call your doctor to arrange a follow-up appointment, make the next available appointment. In the interim, return anytime if worse or if new symptoms develop. Forms: PCP List
[2022-12-21] MEDS ORDERED: APIXABAN 5 MG TABLET PO STA (15:59)
[2022-12-21 16:11] LABS: BASOPHILS # (AUTO) 0.1 10^3/uL (0.0-0.1); BASOPHILS % (AUTO) 0.7 %; EOSINOPHILS # (AUTO) 0.1 10^3/uL (0.0-0.7); EOSINOPHILS % (AUTO) 0.9 %; HCT - HEMATOCRIT 34.9 % (37.0-47.0); LYMPHOCYTES # (AUTO) 1.3 10^3/uL (1.5-3.5); LYMPHOCYTES % (AUTO) 15.1 %; MEAN CORPUSCULAR HEMOGLOBIN 27.9 pg (27.0-31.0); MEAN CORPUSCULAR HGB CONC 31.5 g/dL (32.0-36.0); MEAN CORPUSCULAR VOLUME 88.6 fL (81.0-99.0); MEAN PLATELET VOLUME 11.6 fL (7.9-10.8); MONOCYTES # (AUTO) 0.8 10^3/uL (0.0-1.0); MONOCYTES % (AUTO) 8.9 %; NEUTROPHILS # (AUTO) 6.2 10^3/uL (1.5-6.6); NEUTROPHILS % (AUTO) 73.9 %; PLT - PLATELET COUNT 103 10^3/uL (130-450); RED BLOOD COUNT 3.94 10^6/uL (4.20-5.40); RED CELL DISTRIBUTION WIDTH 13.7 % (12.0-15.0); WHITE BLOOD COUNT 8.5 x10^3/uL (4.8-10.8)
--- NOTE | 2022-12-21 16:24 | Ultrasound Report ---
PROCEDURE: Duplex Ext Veins Left INDICATIONS: leg pain TECHNIQUE: Real-time imaging, as well as color and pulse Doppler interrogation, were performed of the lower extr emity deep veins from the inguinal ligament to the popliteal fossa. Attempted visualization of the ca lf veins was performed. COMPARISON: None. FINDINGS: Extensive venous thrombosis throughout left common femoral, superficial femoral and poplite al vein is seen with absence of flow. Above mentioned veins show poor compressibility and poor respir atory variation. IMPRESSION: Extensive occlusive DVT throughout visualized left lower extremity veins. Reviewed by: Zeb Leonard MD on 12/21/2022 4:23 PM PDT Approved by: Zeb Leonard MD on 12/21/2022 4:23 PM PDT Station ID: [id number]
[2022-12-21 16:43] LABS: ALBUMIN 3.8 g/dL (3.2-5.5)
[2022-12-21 16:44] LABS: BUN - BLOOD UREA NITROGEN 38 mg/dL (6-20); CALCIUM 9.1 mg/dL (8.5-10.3); CARBON DIOXIDE - CO2 21 mmol/L (21-32); CHLORIDE 114 mmol/L (101-111); CREATININE 1.6 mg/dL (0.6-1.3); GFR - MDRD 31 (>89); GLUCOSE 138 mg/dL (74-104); POTASSIUM 3.7 mmol/L (3.5-4.5); SODIUM 145 mmol/L (135-145)
== END 2022-12-21 17:26 | disposition home or self-care (01) ==
LOC: EDUNIT# → ED 14:25
DX: I82.412 Acute embolism and thrombosis of left femoral vein (principal); I10 Essential (primary) hypertension; E78.00 Pure hypercholesterolemia, unspecified; I48.91 Unspecified atrial fibrillation; G30.9 Alzheimer's disease, unspecified; F02.80 Dementia in other diseases classified elsewhere, unspecified severity, without behavioral disturbance, psychotic disturbance, mood disturbance, and anxiety; E11.9 Type 2 diabetes mellitus without complications; Z87.891 Personal history of nicotine dependence; Z79.899 Other long term (current) drug therapy
CPT/HCPCS: 36415; 80053; 85025; 93971; 99283; 99284; A9270

== ENCOUNTER 2022-12-21 17:14 | Outpatient (CLI) | payer MEDICARE, OTHER, MEDICAID | END 2022-12-21 23:59 | disposition home or self-care (01) | LOC: EMS 17:14 | PROVIDERS: ATTEND Emergency Medicine | DX: R41.0 Disorientation, unspecified (principal); F03.90 Unspecified dementia, unspecified severity, without behavioral disturbance, psychotic disturbance, mood disturbance, and anxiety | CPT/HCPCS: A0425; A0428 ==

== ENCOUNTER 2022-12-24 13:08 | Outpatient (CLI) | payer MEDICARE, OTHER, MEDICAID | END 2022-12-24 13:09 | disposition short-term general hospital (02) | LOC: EMS 13:08 | DX: R11.10 Vomiting, unspecified (principal); Z74.09 Other reduced mobility; R05.9 Cough, unspecified | CPT/HCPCS: A0425; A0429; A0888 ==

== ENCOUNTER 2023-01-12 16:38 | Outpatient (CLI) | payer MEDICARE, OTHER, MEDICAID | END 2023-01-12 23:59 | disposition short-term general hospital (02) | LOC: EMS 16:38 | DX: R79.89 Other specified abnormal findings of blood chemistry (principal); Z87.19 Personal history of other diseases of the digestive system | CPT/HCPCS: A0425; A0429 ==

== ENCOUNTER 2023-02-22 08:57 | Outpatient (CLI) | payer MEDICARE, OTHER, MEDICAID ==
[2023-02-22 12:10] LABS: BASOPHILS # (AUTO) 0.1 10^3/uL (0.0-0.1); BASOPHILS % (AUTO) 1.2 %; EOSINOPHILS # (AUTO) 0.1 10^3/uL (0.0-0.7); EOSINOPHILS % (AUTO) 1.4 %; HCT - HEMATOCRIT 23.4 % (37.0-47.0); LYMPHOCYTES # (AUTO) 1.1 10^3/uL (1.5-3.5); LYMPHOCYTES % (AUTO) 24.4 %; MEAN CORPUSCULAR HGB CONC 28.6 g/dL (32.0-36.0); MEAN CORPUSCULAR VOLUME 94.4 fL (81.0-99.0); MEAN PLATELET VOLUME 12.5 fL (7.9-10.8); MONOCYTES # (AUTO) 0.4 10^3/uL (0.0-1.0); NEUTROPHILS # (AUTO) 2.7 10^3/uL (1.5-6.6); NEUTROPHILS % (AUTO) 62.8 %; PLT - PLATELET COUNT 193 10^3/uL (130-450); RED BLOOD COUNT 2.48 10^6/uL (4.20-5.40); RED CELL DISTRIBUTION WIDTH 16.1 % (12.0-15.0); WHITE BLOOD COUNT 4.3 x10^3/uL (4.8-10.8)
[2023-02-22 13:09] LABS: HGB - HEMOGLOBIN 6.7 g/dL (12.0-16.0)
== END 2023-02-22 08:58 | disposition home or self-care (01) ==
LOC: EEVIPCON 08:57 → LAB.N 08:57
PROVIDERS: ATTEND Nurse Practitioner Family
DX: D64.9 Anemia, unspecified (principal)
CPT/HCPCS: 36415; 85025

== ENCOUNTER 2023-02-22 15:40 | Outpatient (CLI) | payer MEDICARE, OTHER, MEDICAID | END 2023-02-22 15:41 | disposition short-term general hospital (02) | LOC: EMS 15:40 | DX: R79.89 Other specified abnormal findings of blood chemistry (principal) | CPT/HCPCS: A0425; A0429 ==

== ENCOUNTER 2023-02-25 13:54 | Outpatient (CLI) | payer MEDICARE, OTHER, MEDICAID | END 2023-02-25 13:55 | disposition short-term general hospital (02) | LOC: EMS 13:54 | DX: S00.83XA Contusion of other part of head, initial encounter (principal); W18.30XA Fall on same level, unspecified, initial encounter; Y92.098 Other place in other non-institutional residence as the place of occurrence of the external cause; Z79.01 Long term (current) use of anticoagulants | CPT/HCPCS: A0425; A0429; A0888 ==